=== PATIENT | female | born 1940 | race Caucasian/White ===

== ENCOUNTER 2019-09-02 09:46 | Inpatient (IN) | payer MEDICARE, OTHER, SELFPAY ==
[2019-09-02] VITALS (22 sets, daily range): BP systolic 99–152; BP diastolic 48–84; PULSE 53–96; RESP 14–301; TEMP 36.4–37.4; O2SAT 90–96; BMI 38.9
--- NOTE | 2019-09-02 06:39 | ANES.PAUD ---
Pre-Anesthetic Update Pre-Anesthetic Assessment: Date of Surgery/Procedure: 09/02/19 Proposed Procedure: Operation Date: 09/02/19 07:00 Proposed Procedures p Total Knee Arthroplasty(Right) - Reji Johnson, DO Any changes to Pre-Anesthetic Assessment?: No Last Intake: Intake Last Solid Date 09/01/19 Vitals: Temperature 97.7 F 09/02/19 06:11 Temperature Source Temporal Artery S can 09/02/19 06:11 Pulse Rate 53 L 09/02/19 06:11 Pulse Rhythm 09/02/19 06:11 Pulse Strength 3+ Normal 09/02/19 06:11 Respiratory Rate 18 09/02/19 06:11 Respiratory Effort Non-Labored 09/02/19 06:11 Respiratory Depth Normal 09/02/19 06:11 Respiratory Patter n 09/02/19 06:11 Blood Pressure 148/73 09/02/19 06:11 Blood Pressure Barbara n 98 09/02/19 06:11 Blood Pressure Pos ition Sitting 09/02/19 06:11 Pulse Oximetry 96 09/02/19 06:11 Oxygen Delivery Me thod 09/02/19 06:11 Exam: Pre-Anes Outpt Exam: alert, oriented x 3, clear to auscultation bilaterally and regular rate & rhythm Cardiac Studies: No Data to Display
--- NOTE | 2019-09-02 06:54 | ANES.PROC ---
Anesthesia Procedures Procedure/Date: 09/02/19 Nerve Block ^: Nerve Block 1: Main Anesthesia: spinal anesthesia block Time Out Performed: Yes Consent: requested by attending/covering physician, from patient and risks and benefits reviewed Nerve block location: adductor canal Anesthesia monitors applied: pulse oximetry and EKG Nerve block position: semi sitting Anesthetic Used: ropivicaine 0.5% Amount of anesthesia used (mL): 30 Ultrasound used to: recognize landmarks and visualize and ID femerol nerve Nerve Stimulator Used?: No Interscalene/Femoral BLK: 4 stimuplex 21 g needle used for position and inplane approach and visualize local anesthetic spread Injection: neg aspiration of heme Patient Tolerated Procedure: well and no complications
--- NOTE | 2019-09-02 06:57 | PM.HPUD ---
H&P update H&P Update: DATE OF SURGERY/PROCEDURE: 09/02/19 DATE H&P PERFORMED: 08/06/19 H&P UPDATE INFORMATION: No changes to prior documentation PREOP DIAGNOSIS: DJD right knee PRIMARY INDICATION FOR PROCEDURE: DJD right knee PLANNED PROCEDURE: Operation Date: 09/02/19 07:00 Proposed Procedures p Total Knee Arthroplasty(Right) - Reji Johnson DO
[2019-09-02] MEDS: midazolam 1 mg/mL INJ 5 ML 5 MG IVP (06:59)
[2019-09-02] MEDS: scopolamine 1.5 Patch 1 PATCH TRANSDERMA (07:06)
[2019-09-02] MEDS: sodium chloride 0.9% 1,000 ML 30 ML IV (07:07)
--- NOTE | 2019-09-02 07:09 | P.OP_ITS ---
Operative Report Post-Operative Note: Date of procedure: 09/02/19 Preop Diagnosis: DJD right knee Post-op Findings: DJD right knee Procedure Done: Right total knee arthroplasty CPT 09661 Computer-assisted imageless navigation CPT 30197 Implants: Nakul triathlon total knee system Posterior stabilized femoral component size 4?cemented Munday tibial baseplate size 4 cemented Posterior stabilized tibial articular surface 4 x 13 mm Specimens removed/disposition: Bone and cartilage right knee Surgeon: Reji Johnson Anesthesia: adductor canal and SAB Estimated blood loss (mL): 25 Tourniquet time (min): 100 IV fluids (mL): 600 Urine output (mL): 150 Complications: No apparent complications Findings: advanced tricompartmental DJD patella very thin only 18-20 mm in thickness Condition: stable Disposition: floor Operative Report: Brief History: 79-year-old white female with progressive disabling right knee pain due to degenerative arthritis. At this time she's failed conservative treatment. She is attended the [facility] joint class. All of her questions and concerns were answered. She is aware the risks of total knee arthroplasty surgery include aren't limited to: Infection, loosening about prosthesis, failure to relieve all pain, nerve/blood vessel/tendon injury, potential for fractures about the prosthesis that could lead to need for revision surgery. Medical complications can include blood clots, heart attack, stroke risks up to including . All questions are answered patient agreeable to proceed with surgery. Procedure: 2 g Ancef 1 g of vancomycin 1 g TXA at start of procedure and and during wound of closure Santa [place] triathlon Right cemented posterior stabilized femoral component size 4 [place] universal tibial baseplate size 4 [place] X3 posterior stabilized tibial articular surface size 4 x 13 mm 2 packages of Palacos cement with tobramycin Patient identified. Surgical site signed. Surgical permit signed. Patient received 1 g of Vancomycin and 2 g of Ancef for antimicrobial prophylaxis. Jimi thesia team performed a adductor canal block in the preoperative holding area. She was taken to the operating room. She was received a spinal anesthetic. Griffin catheter was placed. A gel bump was placed under the ipsilateral buttock. A tourniquet was placed about the upper aspect of the operative right limb. The patient received 1 g of TXA intravenously to decrease blood loss prior to incision. The operative limb was then sterilely prepped and draped usual fashion. The operative limb was exsanguinated using an Esmarch bandage and the tourniquet inflated to 300 mmHg pressure. A 20 cm midline incision was made with a skin knife. Full-thickness skin flaps were made. Skin edge bleeders were coagulated with electrocautery. Using a second knife we perform a medial parapatellar arthrotomy. Soft tissues were released off the anteromedial aspect of the tibia to the posterior medial corner of the tibia with second knife and Castro elevator. The anterior horns of the medial and lateral menisci were released and resected. Partial fat pad resection was performed with sharp dissection. The anterior posterior cruciate ligaments were divided sharply. Using electrocautery the lateral patellofemoral ligament was divided. The knee was placed in full extension. The patella was everted. Marginal osteophytes were removed. Electrocautery was taken around the periphery of the patella for denervation. Marginal osteophytes were removed with a rongeur. I elected not to resurface the patella as the patellar thickness measured a mere 18-20 mm. A partial lateral facetectomy was performed with an oscillating saw. The knee was flexed to 60? a guide pin for the OrthAlign navigation device was inserted on the distal femur on [place]'s line. We measured for the anterior posterior offset and input the number. We attached the reference sensor and unit. We maneuvered the leg to register the femur. We then set the resection plane at 0? mechanical axis and flexion at 5? flexion for the femoral component. We set the distal femoral resection guide for 10 mm as the patient had a slight flexion contracture.. Using an oscillating saw we performed the distal femoral cut. We sized the femur for a size 4 using the anterior referencing guide. Rotation was set at 3? of external rotation. The 4-in-1 cutting guide was put into place and an mckenna wing was placed through the anterior cutting guide to assess for the potential of anterior notching. The mckenna wing passed anterior to the femoral cortex. The 4-in-1 cutting block was pinned into place and the anterior and posterior as well as the chamfer cuts were then performed. The PS cutting block was pinned into place and the box cut was made with an oscillating saw. Lug holes were drilled. We then secured the tibial cutting jig on the tibia and held in place with a rubberized strap. The guide was put in place and the medial one third of the tibial tubercle and was secured with 3 pins. Tibial registration was performed by first reading the midline probe offset. The side levers were unlocked and we extended the distal probe to match offsets. We then registered the lateral followed by the medial malleolus. We set the varus/valgus angle to 0? and set the posterior slope to 0 degrees. We used the 2 mm stylus set our depth for tibial resection. We then used the oscillating saw to perform our proximal tibial cut. We now at checked our extension space and we were able to put a size 13 spacer without difficulty.The tibia was sized for a size 4. The knee joint and subcutaneous tissues were injected with 120 mL of a solution containing Exparel, 0.25% Marcaine and sterile saline. The Size 4 right trial posterior stabilized femoral component was put in place. The size 4 tibial trial component was inserted. The rotational alignment was determined by placing the knee through a range of motion with trial components in place to include a trial 11 mm trial posterior tibial articular surface. The size 4 tibial plate was held in place using headed pins. We then drilled for the stem and punched for the keel. A trial reduction was performed with an 11 mm trial articular surface the knee was able to come to slight hyperextension with flexion of 110?. The patella tracked nicely with a no touch technique. All trial components were removed from the knee. The knee was irrigated with pulsatile lavage containing antibiotic solution and the joint was dried. We then mixed 2 bags of cement with Tobramycin. Tobramycin for additional antimicrobial prophylaxis. We cemented size 4 femoral component and impacted it into place. We cemented the size 4 tibial component and removed excess cement. The cement was allowed to cure fully. A trial 11 mm posterior stabilized tibial articular bearing surface was inserted into place the knee came to slight hyperextension extension with subtle varus/valgus laxity. We then trialed a 13 mm thickness posterior stabilized tibial articular bearing surface. The knee was reduced. The knee came to near full extension flexion easily to 110?. The knee was stable to varus/valgus stress. The patella tracked nicely with a no touch technique. The overall stability in flexion and extension was preferred with the 13mm thic ktibial articular bearing surface. The 13 mm trial bearing surface was removed and the actual 13 mm posterior stabilized tibial articular bearing surface was inserted without difficulty. The knee was then irrigated with Betadine-containing saline solution and antibiotic containing saline solution. The patient received 1 g of TXA intravenously to decrease blood loss just prior to tourniquet deflation during wound closure. FloSeal was then placed in the wound for additional hemostasis within the joint was dried. Vancomycin powder was placed and capsular closure was performed with permanent as well as absorbable barbed suture. The subcutaneous layer was irrigated with Betadine-containing saline solution and antibiotic containing saline solution. Vancomycin powder was also placed in this layer. The wound was then closed in layers with kathy on skin. The knee joint and subcutaneous tissues were injected with 120 mL of a solution containing Exparel, 0.25% Marcaine and sterile saline. Skin glue was applied to the incision. Sterile dressings were then applied. A compressive Paul wrap was applied from ankle to groin. The patient was aroused from general anesthesia. Patient was taken to recovery room. Patient tolerated the procedure well. All counts were correct. Coding Level of Care Code Acute Family Law Specialist for Luis Motley
--- NOTE | 2019-09-02 08:35 | SUR.OPER ---
0814 Family updated of patient's status.
--- NOTE | 2019-09-02 09:13 | SUR.OPER ---
0913 Family updated of patient's status.
[2019-09-02] MEDS: vancomycin 1,000 MG SDV 1000 MG XX (09:19)
--- NOTE | 2019-09-02 09:30 | SUR.OPER ---
0930 Family updated of patient's status.
--- NOTE | 2019-09-02 10:11 | SUR.PHASEI ---
1011 PT HAS SENSATION/MOVEMENT IN R. FOOT, PEDAL PULSE PALPATED, CAP REFILL <3 SEC
--- NOTE | 2019-09-02 10:15 | XR_ITS ---
WS: [id number] KNEE RIGHT TECHNIQUE: 3 views of the right knee CLINICAL INFORMATION: post op COMPARISON: FINDINGS: Early postoperative right TKA. Hardware appears in good position. Surgical kathy. Soft tissue edema . Suprapatellar effusion with postoperative subcutaneous air. Normal alignment. XR/XR knee RT 3V* [id number] IMPRESSION: Satisfactory early postoperative right TKA. Hardware appears in good position.
--- NOTE | 2019-09-02 10:36 | SUR.PHASEI ---
1036 FIRST ICE APPLIED TO R. KNEE
[2019-09-02] MEDS: sodium chloride 0.9% 1,000 ML 100 ML IV ×2 (11:14→20:47)
[2019-09-02] MEDS: acetaminophen 500 mg Tablet 1000 MG PO ×2 (11:15→20:46)
[2019-09-02] MEDS: oxyCODONE 5 mg IR Tab/Cap PO ×3 (11:58→22:26)
[2019-09-02] MEDS: chlorhexidine gluconate 0.12% Btl 473 mL 30 ML MUCOUS MEM ×3 (11:59→20:46)
[2019-09-02] MEDS: TRAMadol 50 mg Tablet PO ×2 (14:11→21:38)
--- NOTE | 2019-09-02 14:24 | ANE.PACU ---
 Inpatient post-anesthesia follow up: Airway intact: Yes Vital signs: Temperature 97.6 F Pulse Rate [Bilate ral Brachial 65 ] Pulse Rate [Left] 66 Pulse Rate 69 Respiratory Rate 18 Blood Pressure [Le ft Arm] 152/79 Pulse Oximetry 95 Oxygen Delivery Me thod Room Air Oxygen Flow Rate Fraction of Inspir ed Oxygen Hydration adequate: Yes Nausea and vomiting: No Pain level: 3 Mental status: Baseline
[2019-09-02] MEDS: ondansetron 2 mg/ML SDV 2 mL 4 MG IVP (14:51)
--- NOTE | 2019-09-02 16:31 | PC.NURSE ---
Baez leaking at this time. Call placed to Dr. Johnson for early baez removal. New order to remove baez. 10 mL of H2O removed from bulb. Pt tolerated well.
[2019-09-02] MEDS: iron polysaccharide complex 150 mg Capsule PO (17:42)
[2019-09-02] MEDS: sennosides-docusate Tablet 2 TAB PO (17:42)
--- NOTE | 2019-09-02 19:46 | PC.NURSE ---
dressing to right knee dry and intact ice reapplied
[2019-09-02] MEDS: apixaban 5 mg Tablet 2.5 MG PO (21:36)
--- NOTE | 2019-09-02 21:44 | PC.NURSE ---
up to bsc voided small amount but incont large amount to chux. baljit care per self
[2019-09-03] VITALS (9 sets, daily range): BP systolic 130–154; BP diastolic 63–67; PULSE 75–85; RESP 15–22; TEMP 36.6–37.6; O2SAT 90–95
[2019-09-03] MEDS: TRAMadol 50 mg Tablet PO ×3 (01:44→20:42)
[2019-09-03] MEDS: oxyCODONE 5 mg IR Tab/Cap PO ×2 (02:57→17:17)
--- NOTE | 2019-09-03 03:01 | PC.NURSE ---
up to c incont of urine to chux and only voided small amount per dtr.
[2019-09-03] MEDS: acetaminophen 500 mg Tablet 1000 MG PO ×3 (04:37→20:35)
[2019-09-03 04:45] LABS: Basophils # 0.1 10^3/uL (0.0-0.1); Basophils % 0.4 %; Eosinophils % 0.1 %; Hematocrit 39.2 % (37.0-47.0); Hemoglobin 12.4 g/dL (11.5-15.3); Lymphocytes # 1.2 10^3/uL (0.8-4.8); Lymphocytes % 9.3 %; Mean Corpuscular HGB Conc 31.6 g/dL (30.0-36.0); Mean Corpuscular Hemoglobin 29.5 pg (28.0-34.0); Mean Corpuscular Volume 93.1 fL (81-99); Mean Platelet Volume 10.6 fL (7.4-10.4); Monocytes # 1.5 10^3/uL (0.2-0.9); Monocytes % 11.9 %; Neutrophils # 9.8 10^3/uL (1.8-7.7); Neutrophils % 77.8 %; Nucleated Red Blood Cells % 0 %; Platelet Count 263 10^3/cmm (130-400); Red Blood Count 4.21 10^6/uL (4.1-5.3); White Blood Count 12.6 10^3/uL (4.0-10.0)
[2019-09-03 06:29] LABS: Anion Gap 15.9 (5-19); Blood Urea Nitrogen 16 mg/dL (8-23); Calcium 9.1 mg/Dl (8.8-10.2); Carbon Dioxide 22 mmol/L (22-29); Chloride 97 mmol/L (98-107); Glucose 158 mg/dL (74-106); Potassium 3.9 mmol/L (3.5-5.1); Sodium 131 mmol/L (136-145)
[2019-09-03] MEDS: sodium chloride 0.9% 1,000 ML 100 ML IV ×2 (06:41→20:35)
--- NOTE | 2019-09-03 07:26 | PM.PN ---
Subjective Subjective: Interval history: 79 yo white female POD#1 s/p right TKR for DJD Medications: Reviewed: Yes Medication Review Details: Reviewed Vitals/I&O/Wt Last Vital Signs Afebrile Temp 99.6 F 09/03/19 05:09 Pulse 78 09/03/19 05:09 Resp 22 H 09/03/19 05:09 BP 140/63 09/03/19 05:09 Pulse Ox 95 09/03/19 05:09 09/02/19 09/03/19 09/03/19 22:59 06:59 14:59 Intake Total 1585 / 2465 1320 / 3785 Output Total 60 / 385 100 / 485 Balance 1525 / 2080 1220 / 3300 Weight last 48 hrs Weight 213 lb Weight 213 lb Physical Exam Narrative: EXAM NARRATIVE: 79 y/o white female s/p episode of emesis Const: COMMON NORMALS: oriented x3 HENMT: COMMON NORMALS: normocephalic and head/scalp atraumatic HEAD & SCALP: normocephalic and atraumatic Eye: COMMON NORMALS: PERRL, conjunctivae normal and negative for no scleral icterus CONJUNCTIVA: Yes conjunctivae normal PUPIL: Yes PERRL Resp: COMMON NORMALS: normal respiratory effort and clear to auscultation bilaterally AUSCULTATION: clear to auscultation bilaterally, no rales, no rhonchi and no wheezes Cardio: COMMON NORMALS: regular rate and regular rhythm JUGULAR VENOUS DISTENTION: no JVD RATE: regular rate RHYTHM: regular rhythm GI: COMMON NORMALS: normal to inspection, nondistended, normoactive bowel sounds, soft to palpation and non-tender PALPATION: Yes soft Extremity: RIGHT LOWER EXTREMITY: Yes knee joint (Dressing clean dry and intact with minimal strikethrough) Right knee: Yes inspection, Yes other and Yes special tests OTHER: No calf tenderness Neuro: COMMON NORMALS: oriented x3 Psych: COMMON NORMALS: mental status grossly normal, cooperative and speech normal SPEECH: Yes normal speech Urinary Catheter Management^: Griffin: Cath Placed During This Visit: no A&P Assessment and plan (1) Status post total right knee replacement: Postoperative day 1 status post right total knee arthroplasty for degenerative arthritis Postoperative nausea and vomiting-antiemetics ordered Continue perioperative antibiotics started extended oral prophylaxis tomorrow VTE at highest risk postop-Eliquis 2.5 mg by mouth twice a day, sequential compression devices and immobilization Discharge planning to home with home health Status: Acute Code(s): Z96.651 - Presence of right artificial knee joint Attestations Medical Necessity Statement*: Patient status post right total knee arthroplasty with complaints of postoperative nausea and vomiting. Patient requiring potent narcotic medication for pain control. Patient be kept in house to ensure ability to eat and drink as well as to control pain. Physical therapy still needs to work with patient to ensure that she is safe to be transferred home with home health. Time Spent in Patient Care: 16 - 35 minutes (>than 50% of time spent in counselling and/or direct pt care on unit). Coding Level of Care Code Established Pt Acute Registered Dental Assistant for Luis Motley Patient Type Established Diagnoses Status post total right knee replacement Z96.651 Time Spent (min) 23
[2019-09-03] MEDS: ondansetron 2 mg/ML SDV 2 mL 4 MG IVP (08:11)
[2019-09-03] MEDS: losartan 50 mg Tablet PO (09:03)
[2019-09-03] MEDS: apixaban 5 mg Tablet 2.5 MG PO ×2 (09:03→17:06)
[2019-09-03] MEDS: citalopram 20 mg Tablet PO (09:03)
[2019-09-03] MEDS: multivitamin therapeutic Tablet 1 TAB PO (09:03)
[2019-09-03] MEDS: iron polysaccharide complex 150 mg Capsule PO ×2 (09:03→17:06)
[2019-09-03] MEDS: amlodipine 5 mg Tablet PO (09:04)
[2019-09-03] MEDS: atorvastatin 40 mg Tablet 20 MG PO (09:04)
[2019-09-03] MEDS: sennosides-docusate Tablet 2 TAB PO ×2 (09:05→17:06)
[2019-09-03] MEDS: chlorhexidine gluconate 0.12% Btl 473 mL 30 ML MUCOUS MEM ×4 (10:41→20:35)
[2019-09-03] MEDS: vancomycin 1,000 MG in sodium chloride 0.9% 250 ML 250 MG IV (10:55)
[2019-09-03] MEDS: fexofenadine 60 mg Tablet 180 MG PO (11:08)
--- NOTE | 2019-09-03 13:41 | ANE.PACU ---
 Inpatient post-anesthesia follow up: Airway intact: Yes Vital signs: Temperature 98.8 F Pulse Rate [Bilate ral Brachial 65 ] Pulse Rate [Left] 81 Pulse Rate 69 Respiratory Rate 18 Blood Pressure [Le ft Arm] 147/64 Pulse Oximetry 95 Oxygen Delivery Me thod Room Air Oxygen Flow Rate Fraction of Inspir ed Oxygen Nausea and vomiting: Yes Pain level: tolerable Mental status: Baseline
--- NOTE | 2019-09-03 17:03 | PC.CHAP ---
Pastoral Care Encounter/Spiritual Assessment Type of Contact [] Declined gas system operator visit [] Patient/Family/Request visit [] Outpatient visit [] Follow-up visit [] Physician referral [] Code/Alert [x] Routine visit [] Staff referral [] Actively dying [] Patient sleeping [x] Family support [] [] Out of room [] Palliative care [] [] Receiving care in room [] Pre-surgical visit [] Trauma [] Long length of stay [] ICU visit [] Other: Relational/Emotional Strength [x] Patient feels connected with others/family/visitors/staff [] Distress [] Loneliness/isolation [] Abandonment Spirituality of Patient x[] Person of Kaila [] Attends Druze of their Kaila [x] Believes in Prayer [] Reads Bible or Muslim materials [] There are Spiritual issues to be addressed Offset Pressman Interventions [x] Prayer [x] Active listening [x] Non-anxious presence [] Spiritual/emotional support [] Crisis/trauma care [] Spiritual counseling [] Bereavement support [] Provided bereavement packet [] Provided Bible/devotional materials [] Provided toy/stuffed animal, coloring book to patient or family member [] Completed spiritual assessment [] Provided Communion [] Anointing/[place] [] Salvation [] Other: Impact on Illness or Injury [] Angry [] Fearful [] Anxious [] Often cries [] Exhaustion [] Unable to work [] Unable to attend scientologist [] Unable to walk/stand [] Unable to read [] Unable to drive [] Unable to eat/drink [] Unable to sleep [] Unable to be with family [] Other: Summary a very sweet lady, in good spirits. Offset Pressman prayed. 3 family Time spent with patient
[2019-09-04] VITALS (7 sets, daily range): BP systolic 130–152; BP diastolic 64–80; PULSE 72–76; RESP 16–20; TEMP 36.8–37.1; O2SAT 91–97
[2019-09-04] MEDS: acetaminophen 500 mg Tablet 1000 MG PO (03:44)
[2019-09-04] MEDS: oxyCODONE 5 mg IR Tab/Cap PO ×2 (03:48→08:12)
[2019-09-04] MEDS: sodium chloride 0.9% 1,000 ML 100 ML IV (03:50)
[2019-09-04 05:55] LABS: Basophils % 0.4 %; Eosinophils % 0.4 %; Hematocrit 33.2 % (37.0-47.0); Hemoglobin 10.9 g/dL (11.5-15.3); Lymphocytes # 1.5 10^3/uL (0.8-4.8); Lymphocytes % 13.4 %; Mean Corpuscular HGB Conc 32.8 g/dL (30.0-36.0); Mean Corpuscular Hemoglobin 29.9 pg (28.0-34.0); Mean Platelet Volume 10.9 fL (7.4-10.4); Monocytes # 1.4 10^3/uL (0.2-0.9); Monocytes % 12.6 %; Neutrophils # 8.2 10^3/uL (1.8-7.7); Neutrophils % 72.7 %; Nucleated Red Blood Cells % 0 %; Platelet Count 222 10^3/cmm (130-400); Red Blood Count 3.65 10^6/uL (4.1-5.3); White Blood Count 11.2 10^3/uL (4.0-10.0)
[2019-09-04] MEDS: chlorhexidine gluconate 0.12% Btl 473 mL 30 ML MUCOUS MEM (08:10)
[2019-09-04] MEDS: losartan 50 mg Tablet PO (08:11)
[2019-09-04] MEDS: fexofenadine 60 mg Tablet 180 MG PO (08:11)
[2019-09-04] MEDS: atorvastatin 40 mg Tablet 20 MG PO (08:11)
[2019-09-04] MEDS: iron polysaccharide complex 150 mg Capsule PO (08:11)
[2019-09-04] MEDS: sennosides-docusate Tablet 2 TAB PO (08:11)
[2019-09-04] MEDS: multivitamin therapeutic Tablet 1 TAB PO (08:11)
[2019-09-04] MEDS: apixaban 5 mg Tablet 2.5 MG PO (08:12)
[2019-09-04] MEDS: citalopram 20 mg Tablet PO (08:13)
[2019-09-04] MEDS: amlodipine 5 mg Tablet PO (08:13)
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
== END 2019-09-04 10:48 | disposition home health service (06) | DRG 470 ==
LOC: MEDSURG 09:47
PROVIDERS: Admitting Provider Orthopaedic Surgery; Family Provider Family Medicine; PCP Family Medicine; Visit Provider Orthopaedic Surgery
PROC: 0SRC0J9 Replacement of Right Knee Joint with Synthetic Substitute, Cemented, Open Approach (ICD-10-PCS; CPT 27447; principal; 2019-09-02 07:00)
DX: M17.11 Unilateral primary osteoarthritis, right knee (principal); Z79.82 Long term (current) use of aspirin
CPT/HCPCS: 36415; 51702; 73562; 80048; 85025; 86850; 86900; 88304; 96374; 96375; 97110; 97116; 97161; 97165; 97535; C1776; C9290; G0378; J0690; J1580; J2001; J2250; J2405; J2704; J2795; J3010; J3370; J3490; J7030; J7050

== ENCOUNTER 2019-09-05 22:31 | Inpatient (IN) | payer MEDICARE, OTHER, SELFPAY ==
[2019-09-05 22:38] VITALS: BP 142/52; PULSE 78; RESP 26; O2SAT 75; BMI 41.5
--- NOTE | 2019-09-05 22:44 | ED_ITS ---
Entered by Florencia Lezama, acting as scribe for Adam Zazueta DO HPI - SOB/Dyspnea General: Chief Complaint: Shortness of Breath/Dyspnea Stated Complaint: Cant breathe Time Seen by Provider: 09/05/19 22:46 Source: patient Mode of arrival: wheelchair Limitations: no limitations History of Present Illness: HPI Narrative: 79 yo f came to the er pov with rene caro for sob. Onset was today. Pts family states that she is not usually on o2 at home. Family states that she has a knee replacement a few days ago ago. MD elicited complaint: shortness of breath Onset (ago): day(s) (today) Context: other (recent knee replacement surgery) Timing: constant Severity: moderate Exacerbating factors: nothing Relieving factors: oxygen and rest Associated symptoms: Reports fever(s); Deny abdominal pain, chest pain, dizziness, nausea, orthopnea, palpitations or vomiting Related Data: Home oxygen amount: none Review of Systems Const: Reports: fever Eyes: Denies: change in vision or blurry vision ENMT: Denies: painful swallowing, swelling of lips/tongue, bleeding gums, dental pain, Change in hearing, nose bleeds, post nasal drip or facial/sinus pain Card: Denies: chest pain, palpitations or shortness of breath when lying down Resp: Reports: shortness of breath; Denies: productive cough, non-productive cough or wheezing GI: Denies: abdominal pain, nausea or vomiting : Denies: painful urination, urinary frequency, urinary urgency or blood in urine Musc: Denies: neck pain, back pain, redness or joint warmth Skin/Breast: Denies: rash, itching or redness Neuro: Denies: dizziness Psych: Denies: anxiety, visual hallucinations or auditory hallucinations PFSH ED PFSH: Statuses (acute, chronic, etc) shown below reflect problem list status as previously entered and may not be historically accurate Medical History Coronary artery disease (Chronic) Degenerative arthritis of right knee (Acute) Hypertension (Chronic) Surgical History History of heart artery stent (Acute) History of knee replacement (Acute) Status post total right knee replacement (Chronic) Social History Smoking and tobacco status: never smoked Physical Exam Const: COMMON NORMALS: alert GENERAL APPEARANCE: well developed ORIENTATION/CONSCIOUSNESS: Yes awake, Yes oriented to person, Yes oriented to place and Yes oriented to time HENMT: COMMON NORMALS: normocephalic, external ears normal, external nose normal and moist oral mucous membranes HEAD & SCALP: normocephalic; no scalp tenderness FACE & SINUS: normal facial exam NOSE: external nose normal and no nasal discharge EXTERNAL EAR: Yes external ears normal MOUTH: tongue normal Eye: COMMON NORMALS: PERRL, EOMs intact bilaterally and conjunctivae normal EYELID: eyelids normal CONJUNCTIVA: Yes conjunctivae normal PUPIL: Yes PERRL Neck/C-Spine: COMMON NORMALS: full ROM GENERAL: No tracheal deviation Chest: COMMONS NORMALS: inspection of chest normal CHEST: Yes symmetrical chest wall rise and No tenderness Resp: COMMON NORMALS: clear to auscultation bilaterally EFFORT & INSPECTION: No tachypneic, No respiratory distress, No retractions, No uses accessory muscles and No tracheal deviation AUSCULTATION: clear to auscultation bilaterally, no rhonchi, no wheezes and diminished lung sounds Cardio: COMMON NORMALS: regular rate and regular rhythm RATE: regular rate RHYTHM: regular rhythm HEART SOUNDS: no murmurs PERIPHERAL PULSES: radial pulses present GI: INSPECTION: No abdominal distension AUSCULTATION: No hyperactive bowel sounds and No hypoactive bowel sounds PALPATION: No tender, No guarding and No rigid PERCUSSION: no dullness to percussion and no tympanic to percussion : COMMON NORMALS: Yes no CVA tenderness BLADDER/KIDNEY EXAM: Yes no CVA tenderness Back/Pelvis: COMMON NORMALS: no CVA tenderness Neuro: SENSORIUM/ORIENTATION: Yes alert, Yes oriented to person, Yes oriented to place and Yes oriented to time Psych: COMMON NORMALS: mental status grossly normal and speech normal SPEECH: Yes normal speech Skin: COMMON NORMALS: no rashes or lesions noted GENERAL SKIN EXAM: no rashes or lesions noted Course ED course: 79-year-old lady a few days out from a knee replacement surgery. She presents significantly short of breath. Room air saturations were in the 70s on arrival. Currently she is on 5 L, satting 93%. She is no longer in respiratory distress. She is smiling, and asking questions appropriately. Chest x-ray was nondiagnostic. Troponin was mildly elevated, but did not change at 2 hours. CTA shows no pulmonary embolus. It does show pulmonary edema, which correlates well to a significantly elevated BNP. She will be treated for pulmonary edema. Consultations: Consultation #1: anthony Time: 03:07 Vital Signs: Vital signs: Vital Signs Temperature 97.3 F L 09/06/19 05:05 Pulse Rate 83 09/06/19 05:30 Respiratory Rate 18 09/06/19 05:05 Blood Pressure 140/74 09/06/19 05:05 Pulse Oximetry 94 09/06/19 05:30 MDM - SOB/Dyspnea Lab Data: Labs: Lab Results 09/05/19 09/05/19 09/05/19 Range/Units 22:50 22:50 22:50 WBC 11.7 H (4.0-10.0) 10^3/ uL RBC 3.63 L (4.1-5.3) 10^6/u L Hgb 11.2 L (11.5-15.3) g/dL Hct 34.2 L (37.0-47.0) % MCV 94.2 (81-99) fL MCH 30.9 (28.0-34.0) pg MCHC 32.7 (30.0-36.0) g/dL RDW 13.2 (12.1-15.1) % Plt Count 263 (130-400) 10^3/c mm MPV 11.6 H (7.4-10.4) fL Neut % (Auto) 76.6 % Lymph % (Auto) 9.8 % [place] % (Auto) 11.5 % Eos % (Auto) 1.3 % Baso % (Auto) 0.4 % Neut # (Auto) 9.0 H (1.8-7.7) 10^3/u L Lymph # (Auto) 1.2 (0.8-4.8) 10^3/u L [place] # (Auto) 1.4 H (0.2-0.9) 10^3/u L Eos # (Auto) 0.2 (0.0-0.8) 10^3/u L Baso # (Auto) 0.1 (0.0-0.1) 10^3/u L Nucleated RBC % (a uto) 0 % Nucleated RBCs # 0.0 /100WBC PT 14.40 H (10.5-13.3) SECO NDS INR 1.08 (0.8-1.2) Specimen Type Sample Site ABG pH (7.35-7.45) ABG pCO2 (35-45) mmHg ABG pO2 (80.0-100.0) mmH g ABG HCO3 (22-26) mmol/L ABG Base Excess (-2.0-2.0) mmol/ L Richie Test Hematocrit (37-47) % Hgb O2 Saturation (95-100) % Carboxyhemoglobin (0.4-20.1) %THgb Methemoglobin (0.4-1.5) % Total Hemoglobin (12-16) g/dL O2 Liters/Min % Radiosonde Operator ID Sodium 145 (136-145) mmol/L Potassium 3.6 (3.5-5.1) mmol/L Chloride 99 (98-107) mmol/L Carbon Dioxide 26 (22-29) mmol/L Anion Gap 23.6 H (5-19) BUN 22 (8-23) mg/dL Creatinine 0.9 (0.5-0.9) mg/dL Glucose 126 H (74-106) mg/dL Lactate (0.5-2.2) mmol/L Calcium 9.8 (8.8-10.2) mg/Dl Total Bilirubin 0.6 (0.15-1.2) mg/dL AST 33 H (0-32) U/L ALT 14 (0-33) U/L Alkaline Phosphata se 73 (35-105) IU/L Troponin T Baselin e (0-10) ng/mL Troponin T 120 Min [place] (0-10) ng/mL Delta Troponin T (0-10) ABS# NT-Pro-B Natriuret Pep 6980 H (0-450) pg/mL Total Protein 6.5 L (6.6-8.7) g/dL Albumin 4.0 (3.5-5.2) g/dL Globulin 2.5 (1.3-4.6) g/dL 09/05/19 09/05/19 09/06/19 Range/Units 22:50 23:50 00:21 WBC (4.0-10.0) 10^3/ uL RBC (4.1-5.3) 10^6/u L Hgb (11.5-15.3) g/dL Hct (37.0-47.0) % MCV (81-99) fL MCH (28.0-34.0) pg MCHC (30.0-36.0) g/dL RDW (12.1-15.1) % Plt Count (130-400) 10^3/c mm MPV (7.4-10.4) fL Neut % (Auto) % Lymph % (Auto) % [place] % (Auto) % Eos % (Auto) % Baso % (Auto) % Neut # (Auto) (1.8-7.7) 10^3/u L Lymph # (Auto) (0.8-4.8) 10^3/u L [place] # (Auto) (0.2-0.9) 10^3/u L Eos # (Auto) (0.0-0.8) 10^3/u L Baso # (Auto) (0.0-0.1) 10^3/u L Nucleated RBC % (a uto) % Nucleated RBCs # /100WBC PT (10.5-13.3) SECO NDS INR (0.8-1.2) Specimen Type Arterial Sample Site Radial, right ABG pH 7.44 (7.35-7.45) ABG pCO2 43.1 (35-45) mmHg ABG pO2 51.5 L (80.0-100.0) mmH g ABG HCO3 29.2 H (22-26) mmol/L ABG Base Excess 4.5 H (-2.0-2.0) mmol/ L Richie Test Pos Hematocrit 32.8 L (37-47) % Hgb O2 Saturation 86.1 L (95-100) % Carboxyhemoglobin 1.4 (0.4-20.1) %THgb Methemoglobin 0.3 L (0.4-1.5) % Total Hemoglobin 10.7 L (12-16) g/dL O2 Liters/Min 3.5 % Radiosonde Operator ID monro Sodium (136-145) mmol/L Potassium (3.5-5.1) mmol/L Chloride (98-107) mmol/L Carbon Dioxide (22-29) mmol/L Anion Gap (5-19) BUN (8-23) mg/dL Creatinine (0.5-0.9) mg/dL Glucose (74-106) mg/dL Lactate 1.4 (0.5-2.2) mmol/L Calcium (8.8-10.2) mg/Dl Total Bilirubin (0.15-1.2) mg/dL AST (0-32) U/L ALT (0-33) U/L Alkaline Phosphata se (35-105) IU/L Troponin T Baselin e 77 H (0-10) ng/mL Troponin T 120 Min [place] (0-10) ng/mL Delta Troponin T (0-10) ABS# NT-Pro-B Natriuret Pep (0-450) pg/mL Total Protein (6.6-8.7) g/dL Albumin (3.5-5.2) g/dL Globulin (1.3-4.6) g/dL 09/06/19 Range/Units 00:58 WBC (4.0-10.0) 10^3/ uL RBC (4.1-5.3) 10^6/u L Hgb (11.5-15.3) g/dL Hct (37.0-47.0) % MCV (81-99) fL MCH (28.0-34.0) pg MCHC (30.0-36.0) g/dL RDW (12.1-15.1) % Plt Count (130-400) 10^3/c mm MPV (7.4-10.4) fL Neut % (Auto) % Lymph % (Auto) % [place] % (Auto) % Eos % (Auto) % Baso % (Auto) % Neut # (Auto) (1.8-7.7) 10^3/u L Lymph # (Auto) (0.8-4.8) 10^3/u L [place] # (Auto) (0.2-0.9) 10^3/u L Eos # (Auto) (0.0-0.8) 10^3/u L Baso # (Auto) (0.0-0.1) 10^3/u L Nucleated RBC % (a uto) % Nucleated RBCs # /100WBC PT (10.5-13.3) SECO NDS INR (0.8-1.2) Specimen Type Sample Site ABG pH (7.35-7.45) ABG pCO2 (35-45) mmHg ABG pO2 (80.0-100.0) mmH g ABG HCO3 (22-26) mmol/L ABG Base Excess (-2.0-2.0) mmol/ L Richie Test Hematocrit (37-47) % Hgb O2 Saturation (95-100) % Carboxyhemoglobin (0.4-20.1) %THgb Methemoglobin (0.4-1.5) % Total Hemoglobin (12-16) g/dL O2 Liters/Min % Radiosonde Operator ID Sodium (136-145) mmol/L Potassium (3.5-5.1) mmol/L Chloride (98-107) mmol/L Carbon Dioxide (22-29) mmol/L Anion Gap (5-19) BUN (8-23) mg/dL Creatinine (0.5-0.9) mg/dL Glucose (74-106) mg/dL Lactate (0.5-2.2) mmol/L Calcium (8.8-10.2) mg/Dl Total Bilirubin (0.15-1.2) mg/dL AST (0-32) U/L ALT (0-33) U/L Alkaline Phosphata se (35-105) IU/L Troponin T Baselin e (0-10) ng/mL Troponin T 120 Min [place] 66.11 H (0-10) ng/mL Delta Troponin T -10.89 L (0-10) ABS# NT-Pro-B Natriuret Pep (0-450) pg/mL Total Protein (6.6-8.7) g/dL Albumin (3.5-5.2) g/dL Globulin (1.3-4.6) g/dL Discharge Plan Discharge Admit Provider: Kareem Doss Discharge Date/Time: 09/06/19 04:15 Coding Level of Care Code ED Comber Setter for Chg Fwd The documentation recorded by the Teja silva Stephanie Lyn, accurately reflects the service I personally performed and the decisions made by Marbin holcomb Jeremy John, DO Sep 05, 2019 22:31
[2019-09-05 23:01] VITALS: BP 119/46; PULSE 84; RESP 20; TEMP 37.3
--- NOTE | 2019-09-05 23:02 | PC.NURSE ---
Introduced self to patient and initiated vital signs. Pt is A&O x 4 and agreeeable. Pt states that the reason for the ER visit today is due to shortness of breath which presented earlier in day. Reassured patient of needs and will continue to monitor. Awaiting provider at bedside.
[2019-09-05 23:21] VITALS: BP 123/47; PULSE 66; RESP 18; O2SAT 91
--- NOTE | 2019-09-05 23:22 | ECG_ITS ---
Measurements Intervals [place] Rate: 67 P: 54 NC: 165 QRS: 29 QRSD: 89 T: 29 QT: 400 QTc: [address] & T-WAVE ABNORMALITY Compared to ECG 08/20/2019 10:56:50 T-wave abnormality now present Bradycardia, nonsinus no longer present Atrial abnormality no longer present Myocardial infarct finding no longer present Electronically Signed On 09-06-2019 19:25:08 MAIL MANAGER by Sherry Mina M.D. [email or web address]
[2019-09-05 23:53] LABS: Basophils # 0.1 10^3/uL (0.0-0.1); Basophils % 0.4 %; Eosinophils # 0.2 10^3/uL (0.0-0.8); Eosinophils % 1.3 %; Hematocrit 34.2 % (37.0-47.0); Hemoglobin 11.2 g/dL (11.5-15.3); Lymphocytes # 1.2 10^3/uL (0.8-4.8); Lymphocytes % 9.8 %; Mean Corpuscular HGB Conc 32.7 g/dL (30.0-36.0); Mean Corpuscular Hemoglobin 30.9 pg (28.0-34.0); Mean Corpuscular Volume 94.2 fL (81-99); Mean Platelet Volume 11.6 fL (7.4-10.4); Monocytes # 1.4 10^3/uL (0.2-0.9); Monocytes % 11.5 %; Neutrophils % 76.6 %; Nucleated Red Blood Cells % 0 %; Platelet Count 263 10^3/cmm (130-400); Red Blood Count 3.63 10^6/uL (4.1-5.3); Red Cell Distribution Width 13.2 % (12.1-15.1); White Blood Count 11.7 10^3/uL (4.0-10.0)
[2019-09-05 23:57] LABS: INR 1.08 (0.8-1.2)
[2019-09-06] VITALS (17 sets, daily range): BP systolic 121–168; BP diastolic 55–98; PULSE 64–100; RESP 17–26; TEMP 36.3–36.9; O2SAT 90–98
[2019-09-06 00:07] LABS: Lactate (Lactic Acid level) 1.4 mmol/L (0.5-2.2)
[2019-09-06 00:13] LABS: Troponin(5th) Baseline 77 ng/mL (0-10)
[2019-09-06 00:20] LABS: Alanine Aminotransferase 14 U/L (0-33); Alkaline Phosphatase 73 IU/L (35-105); Anion Gap 23.6 (5-19); Aspartate Amino Transferase 33 U/L (0-32); Blood Urea Nitrogen 22 mg/dL (8-23); Calcium 9.8 mg/Dl (8.8-10.2); Carbon Dioxide 26 mmol/L (22-29); Chloride 99 mmol/L (98-107); Globulin 2.5 g/dL (1.3-4.6); Glucose 126 mg/dL (74-106); NT Pro B Type Natriuretic Pept 6980 pg/mL (0-450); Potassium 3.6 mmol/L (3.5-5.1); Sodium 145 mmol/L (136-145); Total Bilirubin 0.6 mg/dL (0.15-1.2); Total Protein 6.5 g/dL (6.6-8.7)
[2019-09-06 00:35] LABS: ABG PCO2 43.1 mmHg (35-45); ABG PH Result 7.44 (7.35-7.45); Arterial Blood Gas Hematocrit 32.8 % (37-47); Base Excess ABG 4.5 mmol/L (-2.0-2.0); Blood Gas Allen Test Pos; Blood Gas LPM 3.5 %; Blood Gas Sample Site Radial, right; Blood Gas Sample Type Arterial; Carboxyhemoglobin 1.4 %THgb (0.4-20.1); HCO3 ABG 29.2 mmol/L (22-26); HGB O2 Sat 86.1 % (95-100); Methemoglobin 0.3 % (0.4-1.5); PO2 ABG 51.5 mmHg (80.0-100.0); Total Hemoglobin 10.7 g/dL (12-16)
[2019-09-06] MEDS: ipratropium-albuterol 3 mL Neb INHALATION (00:45)
--- NOTE | 2019-09-06 00:53 | XR_ITS ---
WS: [id number] CHEST XRAY TECHNIQUE: Portable chest. CLINICAL INFORMATION: sob COMPARISON: FINDINGS: Heart: Cardiomegaly. Mild pulmonary vascular congestion. Lungs: Elevation right hemidiaphragm. Slightly atelectasis left lung base. No focal pneumonia. Bones: Normal visualized bony structures. XR/XR chest 1V portable [id number] IMPRESSION: Cardiomegaly with mild pulmonary vascular congestion. No focal pneumonia.
[2019-09-06 01:20] LABS: Troponin 5 2HR 66.11 ng/mL (0-10)
[2019-09-06 01:21] LABS: Troponin 5 2HR Delta -10.89 ABS# (0-10)
--- NOTE | 2019-09-06 01:22 | ECG_ITS ---
Measurements Intervals [place] Rate: 71 P: 54 RI: 171 QRS: 24 QRSD: 86 T: 25 QT: 393 QTc: [address] & T-WAVE ABNORMALITY Compared to ECG 08/20/2019 10:56:50 T-wave abnormality now present Bradycardia, nonsinus no longer present Atrial abnormality no longer present Myocardial infarct finding no longer present Electronically Signed On 09-06-2019 19:30:48 LIFESTYLE DIRECTOR by Sherry Mina M.D. [email or web address]
--- NOTE | 2019-09-06 01:24 | CTR_ITS ---
PROCEDURE INFORMATION: Exam: CT Angiography Chest With Contrast Exam date and time: 09/06/2019 1:31 AM Age: 79 years old Clinical indication: Dyspnea; Patient HX: PT had right knee surgery 4 days ago; Additional info: SOB TECHNIQUE: Imaging protocol: Computed tomographic angiography of the chest with intravenous contrast. 3D rendering: MIP and/or 3D reconstructed images were created by the technologist. Total DLP: 1167.13 mGy-cm Radiation optimization: All CT scans at this facility use at least one of these dose optimization techniques: automated exposure control; mA and/or kV adjustment per patient size (includes targeted exams where dose is matched to clinical indication); or iterative reconstruction. Contrast material: OMNI 350; Contrast volume: 95 ml; Contrast route: IV; COMPARISON: CR XR chest 1V portable [id number] 09/06/2019 1:13 AM FINDINGS: Pulmonary arteries: Normal. No pulmonary emboli. Aorta: Calcifications are present within the thoracic and abdominal aorta. Lungs: There is mild bronchial wall thickening seen in the lower hemithoraces. Some strandy opacities are seen in the right lung base likely representing atelectasis. There are some increased linear opacities present in the hemithoraces bilaterally and some ground-glass opacities seen in the right upper lobe posteriorly, findings could represent mild pulmonary edema. There is a calcified granuloma seen in the right upper lobe measuring 3.2 mm. Pleural space: There are bilateral pleural effusions, right slightly larger than left. Heart: Calcifications are seen within the coronary arteries. Liver: There are 2 contiguous hypoattenuation cystic lesions seen within the left hepatic lobe and negative measuring approximately 4.1 cm in transverse dimension likely representing benign cysts. Kidneys and ureters: There is a 4.4 cm partially imaged cystic mass seen on the lateral aspect of the right kidney likely representing a simple cyst. Lymph nodes: Unremarkable. No enlarged lymph nodes. Bones/joints: Unremarkable. No acute fracture. Soft tissues: Unremarkable. CT/CT angio chest PE protcl [id number] IMPRESSION: 1. There are no pulmonary emboli. 2. Bilateral pleural effusions, right slightly larger than left. 3. Strandy opacities in the right lung base likely represents atelectasis. 4. Mild bronchial wall thickening, ground-glass opacities in the right upper lobe and increased linear opacities present in the hemithoraces bilaterally could represent pulmonary edema. 5. Two contiguous simple appearing left hepatic cysts measuring 4.1 cm. These appear stable compared with 03/16/2015. No further workup needed. 6. 4.4 cm partially imaged right renal cyst. This appears stable compared with 03/16/2015. Radiation Dose CTDIVOL = (mGy): DLP = 1167.13 (mGy-cm)
[2019-09-06] MEDS: iohexol 350 mg/mL 100 mL Btl IV (01:30)
[2019-09-06] MEDS: levofloxacin-dextrose 5 % 750 MG/150 ML PREMIX 150 MG IV (02:09)
[2019-09-06] MEDS: FUROsemide 10 mg/mL SDV 10mL 60 MG IVP (03:04)
--- NOTE | 2019-09-06 03:14 | P.HP_ITS ---
Providers/Chief Complaint Primary Care Provider: Van Rosas MD Chief Complaint: HYPOXIC RESP FAILURE, PULMONARY EDEMA History of Present Illness Dai Cavazos is a 79 year old female with a total right knee arthroplasty on 09/02/2019, hypertension presents with altered mental status. Patient altered unable to give history so history obtained from chart and family members. Patient has been altered from her baseline since surgery. Initially family members thought it could be related to opioids given during discharge which they stopped at home. Patient continued to remain altered and noted to be hypoxeic on pulse ox at home. In ED patient was noted to be hypoxemic saturating in 70s?80s. CT chest was negative for PE but showed pulmonary edema. Family denies history of heart failure. Review of Systems Narrative: Unable to obtain refer to HPI Medications/Allergies Allergies Allergy/AdvReac Type Severity Reaction Status Date / Time hydrocodone Allergy Severe ADR-Itching Verified 09/02/19 06:00 codeine Allergy ADR-Itching Verified 09/02/19 06:00 NSAIDS (Non-Steroidal Allergy ADR-Itching Verified 09/02/19 06:00 Anti-Inflamma PFSH Acute PFSH: Statuses (acute, chronic, etc) shown below reflect problem list status as previously entered and may not be historically accurate Medical History Coronary artery disease (Chronic) Degenerative arthritis of right knee (Acute) Hypertension (Chronic) Surgical History History of heart artery stent (Acute) History of knee replacement (Acute) Status post total right knee replacement (Chronic) Social History Smoking and tobacco status: never smoked Vitals/I&O/Wt Last Vital Signs Temp 99.1 F 09/05/19 23:01 Pulse 65 09/06/19 00:48 Resp 20 H 09/06/19 00:45 BP 119/46 09/05/19 23:01 Pulse Ox 92 09/06/19 00:45 Weight last 48 hrs Weight 102.965 kg Physical Exam Const: COMMON NORMALS: no apparent distress and well nourished HENMT: COMMON NORMALS: normocephalic HEAD & SCALP: normocephalic Eye: COMMON NORMALS: no scleral icterus Neck/C-Spine: COMMON NORMALS: supple Resp: AUSCULTATION: crackles and diminished lung sounds Cardio: COMMON NORMALS: regular rate, regular rhythm, S1 normal heart sound and S2 normal heart sound RATE: regular rate RHYTHM: regular rhythm HEART SOUNDS: S1 normal and S2 normal GI: COMMON NORMALS: normal to inspection, nondistended, normoactive bowel sounds and non-tender Extremity: OTHER: R LE 2+ edema w/ surgical site clean and dry on R knee Data : 09/05/19 22:50 09/05/19 22:50 A&P Assessment and plan (1) Status post total right knee replacement: Status: Chronic Code(s): Z96.651 - Presence of right artificial knee joint (2) Coronary artery disease: Status: Chronic Code(s): I25.10 - Atherosclerotic heart disease of [place] coronary artery without angina pectoris (3) Hypertension: Status: Chronic Code(s): I10 - Essential (primary) hypertension (4) Altered mental status: #Altered mental status 2/2 acute hypoxemic respiratory failure 2/[address] scan negative for PE ?IV Lasix ?Nasal cannula ?Spirometer ?Echo to rule out heart failure #Hypertension ?Continue with home medications #Recent total right knee arthroplasty ?Continue with anticoagulation ?We will hold opioids for now due to altered mental status?unclear if contributing to symptoms Continue with rest of chronic medications #DVT prophylaxis?on Eliquis Status: Acute Code(s): R41.82 - Altered mental status, unspecified Attestations Medical Necessity Statement*: Patient requires inpatient greater than 2 midnights admission for altered mental status secondary to hypoxemic respiratory failure Coding Level of Care Code Acute Sheet Metal Journeyman for Luis Fwelizabeth Diagnoses Status post total right knee replacement Z96.651 Coronary artery disease I25.10 Hypertension I10 Altered mental status R41.82
--- NOTE | 2019-09-06 05:22 | ECG_ITS ---
Measurements Intervals [place] Rate: 74 P: 73 TX: 161 QRS: 33 QRSD: 94 T: 26 QT: 391 QTc: [address] & T-WAVE ABNORMALITY Compared to ECG 08/20/2019 10:56:50 T-wave abnormality now present Bradycardia, nonsinus no longer present Atrial abnormality no longer present Myocardial infarct finding no longer present Electronically Signed On 09-06-2019 19:31:09 CUSTOMER EXPERIENCE INTERN by Sherry Mina M.D. [email or web address]
--- NOTE | 2019-09-06 06:24 | USCV_ITS ---
Dai Cavazos Age: 79 Gender: F : 1940 Exam Date: 09/06/2019 08:33 Ordering Phys: Kareem Doss DO Technologist: Amador Osborne [place] [facility] [place]: MURMUR BP: 138 / 67 HR: 78 Rhythm: Sinus Technical Quality: Fair MEASUREMENTS (Male / Female) Normal Values 2D ECHO LV Diastolic Diameter PLAX 3.5 cm 4.2 - 5.9 / 3.9 - 5.3 cm LV Systolic Diameter PLAX 2.2 cm IVS Diastolic Thickness 1.1 cm 0.6 - 1.0 / 0.6 - 0.9 cm IVS Systolic Thickness 1.5 cm LVPW Diastolic Thickness 1.2 cm 0.6 - 1.0 / 0.6 - 0.9 cm LVPW Systolic Thickness 1.3 cm LVOT Diameter 2.0 cm LV Ejection Fraction 2D Teich 65.7 % LV Ejection Fraction MOD 2C 71.0 % LV Ejection Fraction 2C AL 71.0 % LA Diameter 3.9 cm LA Width 3.0 cm LA Height 4.7 cm RA Width 2.1 cm RA Height 4.1 cm M-MODE LV Diastolic Diameter MM 5.5 cm 4.2 - 5.9 / 3.9 - 5.3 cm LV Systolic Diameter MM 3.2 cm LV Ejection Fraction MM Teich 71.8 % IVS Diastolic Thickness MM 0.9 cm 0.6 - 1.0 / 0.6 - 0.9 cm IVS Systolic Thickness MM 1.3 cm LVPW Diastolic Thickness MM 1.1 cm 0.6 - 1.0 / 0.6 - 0.9 cm LVPW Systolic Thickness MM 1.6 cm RV Diastolic Diameter MM 1.8 cm Aortic Annulus Diameter 3.4 cm LA Ao Ratio MM 1.1 MV E Point Septal Separation 0.8 cm DOPPLER AV Peak Velocity 165.0 cm/s LVOT Peak Velocity 126.0 cm/s AV Area Cont Eq vti 1.8 cm squared AV Area Cont Eq pk 2.4 cm squared MV Area PHT 5.0 cm squared Mitral E to A Ratio 1.3 MV E' Velocity 9.0 cm/s Mitral E to MV E' Ratio 17.0 Mitral E to LV E' Lateral Ratio 15.9 Mitral E to LV E' Septal Ratio 18.6 TR Peak Velocity 172.0 cm/s TR Peak Gradient 11.8 mmHg TV Peak E Velocity 89.0 cm/s Right Atrial Pressure 3.0 mmHg Pulmonary Artery Systolic Pressu 14.8 mmHg FINDINGS Left Ventricle Normal left ventricular cavity size. Normal left ventricular systolic function. Left ventricular ejection fraction is estimated at 75 %. No regional wall motion abnormalities. Normal diastolic function. Right Ventricle Normal right ventricular size and systolic function. Right ventricular systolic pressure 14.8 mmHg. Right Atrium Normal right atrial size. Left Atrium Upper normal left atrial size. Mitral Valve Mild mitral annular calcification. No mitral valve stenosis. Mild mitral valve regurgitation. Aortic Valve Aortic valve not well visualized. Aortic valve sclerosis without stenosis. No aortic valve regurgitation. Tricuspid Valve Tricuspid valve not well visualized. Trace tricuspid valve regurgitation. Pulmonic Valve Pulmonic valve not well visualized. Pericardium No pericardial effusion. Echo free space anterior to the right ventricle likely represents a fat pad. Aorta Normal-sized aortic root. CONCLUSIONS 1. Normal left ventricular cavity size. Normal left ventricular systolic function. Left ventricular ejection fraction is estimated at 75 %. No regional wall motion abnormalities. 2. Normal right ventricular size and systolic function. 3. Mild mitral valve regurgitation. 4. Normal pulmonary artery pressure. 5. When compared to previous echocardiogram dated 11/02/2014, there may not have been any significant change. Lynn Purcell MD (Electronically Signed) Final Date: 06 September 2019 18:07 S
[2019-09-06 09:33] LABS: Alanine Aminotransferase 13 U/L (0-33); Albumin Level 3.5 g/dL (3.5-5.2); Alkaline Phosphatase 58 IU/L (35-105); Anion Gap 16.5 (5-19); Aspartate Amino Transferase 27 U/L (0-32); Blood Urea Nitrogen 22 mg/dL (8-23); Calcium 9.8 mg/Dl (8.8-10.2); Carbon Dioxide 26 mmol/L (22-29); Chloride 92 mmol/L (98-107); Globulin 2.5 g/dL (1.3-4.6); Glucose 134 mg/dL (74-106); Iron 21 ug/dL (37-145); Potassium 3.5 mmol/L (3.5-5.1); Sodium 131 mmol/L (136-145); Total Bilirubin 0.6 mg/dL (0.15-1.2); Total Iron Binding Capacity 231 mg/dL; Unsaturated Iron Binding 210 ug/dL (112-347)
[2019-09-06] MEDS: fexofenadine 60 mg Tablet 180 MG PO (09:40)
[2019-09-06] MEDS: cefUROXime 250 mg Tablet 500 MG PO ×2 (09:40→17:24)
[2019-09-06] MEDS: aspirin 81 mg EC Tablet PO (09:40)
[2019-09-06] MEDS: apixaban 5 mg Tablet 2.5 MG PO ×2 (09:40→17:23)
[2019-09-06] MEDS: losartan 50 mg Tablet PO (09:41)
[2019-09-06] MEDS: amlodipine 5 mg Tablet PO (09:41)
[2019-09-06] MEDS: citalopram 20 mg Tablet PO (09:41)
[2019-09-06] MEDS: atorvastatin 40 mg Tablet 20 MG PO (09:41)
[2019-09-06 10:25] LABS: Basophils % 0.3 %; Eosinophils % 0.3 %; Hematocrit 33.1 % (37.0-47.0); Lymphocytes # 0.7 10^3/uL (0.8-4.8); Lymphocytes % 5.8 %; Mean Corpuscular HGB Conc 33.2 g/dL (30.0-36.0); Mean Corpuscular Hemoglobin 29.5 pg (28.0-34.0); Mean Corpuscular Volume 88.7 fL (81-99); Mean Platelet Volume 11.3 fL (7.4-10.4); Monocytes % 8.5 %; Neutrophils # 9.7 10^3/uL (1.8-7.7); Neutrophils % 84.5 %; Nucleated Red Blood Cells % 0 %; Platelet Count 284 10^3/cmm (130-400); Red Blood Count 3.73 10^6/uL (4.1-5.3); White Blood Count 11.5 10^3/uL (4.0-10.0)
[2019-09-06 10:50] LABS: Bilirubin Urine Neg (NEGATIVE); Blood Urine Neg (Negative); Glucose Urine UA Norm (Normal); Ketones Urine Negative (Negative); Leukocyte Esterase Urine Negative (Negative); Nitrate Urine Negative (Negative); Protein Urine Neg (Negative); Specific Gravity, Urine 1.005 (1.005-1.030); Urine Appearance Clear (CLEAR); Urine Color Straw (Yellow); Urobilinogen Urine Norm (Negative)
[2019-09-06 11:00] LABS: Bacteria Urine TRACE; Squamous Epithelial Cell Urine 0-4 (0-5)
[2019-09-06 11:01] LABS: Add Urine Culture? No
[2019-09-06 13:44] LABS: Oxygen Device NC
[2019-09-06] MEDS: TRAMadol 50 mg Tablet PO ×2 (14:49→19:12)
[2019-09-06] MEDS: FUROsemide 10 mg/mL SDV 4mL 40 MG IVP (14:49)
--- NOTE | 2019-09-06 16:20 | P.PN_ITS ---
Subjective Subjective: Interval history: Admitted overnight. H&P and labs noted. This morning on evaluation patient is lying comfortably in bed. Denies of having further shortness of breath. Saturating more than 92% on 2 L nasal cannula. Denies of having any nausea, vomiting, headache, palpitations, abdominal pain, dysuria, diarrhea, change in her bowel movements. As per her daughter who is bedside patient states her mentation is improved a lot. At present patient is AO x3. Vitals/I&O/Wt Last Vital Signs Temp 98.5 F 09/06/19 16:00 Pulse 100 09/06/19 16:00 Resp 18 09/06/19 16:00 BP 168/76 09/06/19 16:00 Pulse Ox 93 09/06/19 16:00 09/06/19 09/06/19 09/06/19 06:59 14:59 22:59 Intake Total 180 / 180 360 / 360 Output Total 900 / 900 650 / 650 600 / 1250 Balance -720 / -720 -290 / -290 -600 / -890 Weight last 48 hrs Weight 101.242 kg Weight 102.965 kg Physical Exam Narrative: EXAM NARRATIVE: General: No acute distress, AO x3 HEENT: PERRLA, pupils bilaterally equal and reactive Chest: Bilateral occasional fine crackles in the lower zones, posterior more than anterior, normal vesicular breath sounds, equal good air entry bilaterally CVS: S1-S2 regular, pansystolic murmur soft in mitral area, no tachycardia, no gallops, no rubs Abdomen: Soft, nontender, no organomegaly, bowel sounds present Neuro: No focal deficits, no facial deformity, AO x3, power 5/5 in all limbs A&P Assessment and plan (1) Altered mental status: Status: Acute Code(s): R41.82 - Altered mental status, unspecified (2) Coronary artery disease: Status: Chronic Code(s): I25.10 - Atherosclerotic heart disease of [place] coronary artery without angina pectoris (3) Hypertension: Status: Chronic Code(s): I10 - Essential (primary) hypertension (4) Status post total right knee replacement: Status: Chronic Code(s): Z96.651 - Presence of right artificial knee joint (5) Diastolic heart failure: Status: Acute Code(s): I50.30 - Unspecified diastolic (congestive) heart failure Additional A&P Information Additional A&P Information: Altered mental status: Most likely secondary to excessive opiates given the recent orthopedic surgery. Mentation has improved and patient is back to baseline AO x3 at present. No infiltrates on chest x-ray and CT chest negative for any consolidation. Patient remains afebrile and hemodynamically stable. Infectious cause unlikely. Check UA, pro calcitonin. proBNP elevated. We will hold off on any narcotics for now. We will continue on home dose of tramadol for pain because of recent orthopedic surgery. Continue with IV Lasix 40 mg daily. Strict intake and output charting. Daily weights. Echo already ordered. Hypertension: Continue on home dose of amlodipine, losartan instead of olmesartan. We will also continue the home dose of bisoprolol. We will monitor the blood pressure. If continues to remain high can increase the dose of losartan. Recent orthopedic surgery: Continue and finish the course of Ceftin as prescribed. Continue Eliquis 2.5 mg twice daily after DVT prophylaxis. Continue home dose of aspirin and statins. Full code Cardiac diet. Can transfer patient out to the floors. If patient continues to improve can plan to discharge tomorrow. Attestations Medical Necessity Statement*: Needs continued hospitalization for management of altered mental status in view of excessive opiates and congestive heart failure Time Spent in Patient Care: Greater than 35 minutes Coding Level of Care Code Acute Food Beverage Supervisor for Luis Motley Diagnoses Altered mental status R41.82 Coronary artery disease I25.10 Hypertension I10 Status post total right knee replacement Z96.651 Diastolic heart failure I50.30
[2019-09-06 17:44] LABS: Influenza A by IFA Negative (Negative); Influenza B by IFA Negative (Negative)
--- NOTE | 2019-09-06 21:51 | PC.NURSE ---
Up to bathroom x1 with assist of daughter and walker. Dressing to right knee dry and intact. Hasn't had PT yet cause I haven't been home. Will relay to oncoming shift. Denies complaints at this time. Will monitor.
--- NOTE | 2019-09-06 22:03 | PC.NURSE ---
Family concerned about patient's rambling. Continues to play with heart monitor;however, will follow commands when asked. Family wondering if patient, had that test where they check the blood flow to the neck....if she hasn't had it, I think she needs it. This nurse explained to family that I would check and see and let them know. Family in agreement. Will monitor.
--- NOTE | 2019-09-06 22:54 | PC.NURSE ---
Patient had heart monitor, oxygen and oxygen saturation monitor off. Re-applied all of the above. Denies pain at this time. Will monitor.
[2019-09-07] VITALS (7 sets, daily range): BP systolic 116–125; BP diastolic 66–92; PULSE 80–112; RESP 16–23; TEMP 36.7–37; O2SAT 90–97
--- NOTE | 2019-09-07 00:32 | PC.NURSE ---
Just informed by RT that patient has refused breathing treatments and told RT to shut his oxygen off even though his oxygen saturation was 91-92% with oxygen. Will monitor.
[2019-09-07] MEDS: TRAMadol 50 mg Tablet PO (04:46)
[2019-09-07 05:53] LABS: Basophils % 0.3 %; Eosinophils # 0.1 10^3/uL (0.0-0.8); Eosinophils % 1.1 %; Hematocrit 30.9 % (37.0-47.0); Hemoglobin 10.6 g/dL (11.5-15.3); Lymphocytes # 1.1 10^3/uL (0.8-4.8); Lymphocytes % 12.1 %; Mean Corpuscular HGB Conc 34.3 g/dL (30.0-36.0); Mean Corpuscular Hemoglobin 29.8 pg (28.0-34.0); Mean Corpuscular Volume 86.8 fL (81-99); Mean Platelet Volume 11.4 fL (7.4-10.4); Monocytes # 1.3 10^3/uL (0.2-0.9); Monocytes % 13.9 %; Neutrophils # 6.5 10^3/uL (1.8-7.7); Nucleated Red Blood Cells % 0 %; Platelet Count 275 10^3/cmm (130-400); Red Blood Count 3.56 10^6/uL (4.1-5.3); Red Cell Distribution Width 12.7 % (12.1-15.1)
[2019-09-07 06:12] LABS: Alanine Aminotransferase 20 U/L (0-33); Albumin Level 3.5 g/dL (3.5-5.2); Alkaline Phosphatase 76 IU/L (35-105); Anion Gap 14.5 (5-19); Aspartate Amino Transferase 34 U/L (0-32); Blood Urea Nitrogen 16 mg/dL (8-23); Calcium 9.7 mg/Dl (8.8-10.2); Carbon Dioxide 35 mmol/L (22-29); Chloride 87 mmol/L (98-107); Glucose 139 mg/dL (74-106); Sodium 134 mmol/L (136-145); Total Bilirubin 0.9 mg/dL (0.15-1.2); Total Protein 6.5 g/dL (6.6-8.7)
[2019-09-07 06:24] LABS: Potassium 2.5 mmol/L (3.5-5.1)
[2019-09-07] MEDS: cefUROXime 250 mg Tablet 500 MG PO ×2 (08:43→17:40)
[2019-09-07] MEDS: atorvastatin 40 mg Tablet 20 MG PO (08:43)
[2019-09-07] MEDS: aspirin 81 mg EC Tablet PO (08:44)
[2019-09-07] MEDS: apixaban 5 mg Tablet 2.5 MG PO ×2 (08:44→17:40)
[2019-09-07] MEDS: losartan 50 mg Tablet PO (08:44)
[2019-09-07] MEDS: fexofenadine 60 mg Tablet 180 MG PO (08:44)
[2019-09-07] MEDS: citalopram 20 mg Tablet PO (08:44)
[2019-09-07] MEDS: amlodipine 5 mg Tablet PO (08:44)
[2019-09-07] MEDS: potassium chloride premix 40 MEQ/100 ML PREMIX 25 MEQ IV ×2 (08:45→12:47)
[2019-09-07] MEDS: ondansetron 2 mg/ML SDV 2 mL 4 MG IVP (12:47)
[2019-09-07] MEDS: FUROsemide 10 mg/mL SDV 4mL 40 MG IVP (14:59)
--- NOTE | 2019-09-07 15:41 | PC.CHAP ---
Pastoral Care Encounter/Spiritual Assessment Type of Contact [] Declined supervisor billposting visit [x Pastoral Care Encounter/Spiritual Assessment Type of Contact [] Declined supervisor billposting visit [x] Patient/Family/Request visit [] Outpatient visit [] Follow-up visit [] Physician referral [] Code/Alert [] Routine visit [] Staff referral [] Actively dying [] Patient sleeping [] Family support [] [] Out of room [] Palliative care [] [] Receiving care in room [] Pre-surgical visit [] Trauma [] Long length of stay [] ICU visit [] Other: Relational/Emotional Strength [] Patient feels connected with others/family/visitors/staff [] Distress [] Loneliness/isolation [] Abandonment Spirituality of Patient [x] Person of Kaila [x] Attends Jain of their Kaila [x] Believes in Prayer [x] Reads Bible or Taoist materials [] There are Spiritual issues to be addressed Scrubbing Machine Operator Interventions [x] Prayer [x] Active listening [x] Non-anxious presence [x] Spiritual/emotional support [] Crisis/trauma care [] Spiritual counseling [] Bereavement support [] Provided bereavement packet [] Provided Bible/devotional materials [] Provided toy/stuffed animal, coloring book to patient or family member [x] Completed spiritual assessment [] Provided Communion [] Anointing/Corsica [] Salvation [] Other: Impact on Illness or Injury [] Angry [] Fearful [] Anxious [] Often cries [x] Exhaustion [] Unable to work [x] Unable to attend muslim []x Unable to walk/stand [] Unable to read [] Unable to drive [] Unable to eat/drink [] Unable to sleep [] Unable to be with family [] Other: Summary was a real enjoyment to talk to her loves god with all her heart zach agrue Time spent with patient ] Patient/Family/Request visit [] Outpatient visit ] Follow-up visit [] Physician referral [] Code/Alert [] Routine visit [] Staff referral [] Actively dying [] Patient sleeping [] Family support [] [] Out of room [] Palliative care [] [] Receiving care in room [] Pre-surgical visit [] Trauma [] Long length of stay [] ICU visit [] Other: Relational/Emotional Strength [] Patient feels connected with others/family/visitors/staff [] Distress [] Loneliness/isolation [] Abandonment Spirituality of Patient [] Person of Kaila [] Attends Jain of their Kaila [] Believes in Prayer [] Reads Bible or Taoist materials [] There are Spiritual issues to be addressed Scrubbing Machine Operator Interventions [] Prayer [] Active listening [] Non-anxious presence [] Spiritual/emotional support [] Crisis/trauma care [] Spiritual counseling [] Bereavement support [] Provided bereavement packet [] Provided Bible/devotional materials [] Provided toy/stuffed animal, coloring book to patient or family member [] Completed spiritual assessment [] Provided Communion [] Anointing/Corsica [] Salvation [] Other: Impact on Illness or Injury [] Angry [] Fearful [] Anxious [] Often cries [] Exhaustion [] Unable to work [] Unable to attend muslim [] Unable to walk/stand [] Unable to read [] Unable to drive [] Unable to eat/drink [] Unable to sleep [] Unable to be with family [] Other: Summary Time spent with patient
--- NOTE | 2019-09-07 17:36 | P.PN_ITS ---
Subjective Subjective: Interval history: hypokalemia to 2.5 this morning, patient received 80meq supplemental K. Repeat CMP ordered. Per daughters mental status is significantly improved but not quite at baseline. It appears that patient is still in a fog . She is completely alert alert awake and oriented of my examination today Medications: Reviewed: Yes Vitals/I&O/Wt Last Vital Signs Temp 98.0 F 09/07/19 15:07 Pulse 87 09/07/19 15:32 Resp 16 09/07/19 15:07 BP 117/92 09/07/19 15:07 Pulse Ox 94 09/07/19 15:32 09/07/19 09/07/19 09/07/19 06:59 14:59 22:59 Intake Total 360 / 960 460 / 460 Balance 360 / -290 460 / 460 Weight last 48 hrs Weight 101.242 kg Weight 102.965 kg Physical Exam Narrative: EXAM NARRATIVE: GEN: Awake, alert and oriented, no acute distress CVS: S1S2 N RS: CTA B/L except crackles over RUL Abd: Soft, nt/nd , bs+ IMPORT SPECIALIST: no focal neuro deficits EXT: post surgical dressing over right knee, not opened for exam. Data Micro: Micro: Microbiology 09/06/19 14:37 MRSA Culture - Fin al Nose 09/06/19 09:50 Urine Culture - Pr eliminary Urine,Clean Catch A&P Assessment and plan (1) Altered mental status: Status: Acute Code(s): R41.82 - Altered mental status, unspecified (2) Coronary artery disease: Status: Chronic Code(s): I25.10 - Atherosclerotic heart disease of [place] coronary artery without angina pectoris (3) Hypertension: Status: Chronic Code(s): I10 - Essential (primary) hypertension (4) Status post total right knee replacement: Status: Chronic Code(s): Z96.651 - Presence of right artificial knee joint (5) Diastolic heart failure: Status: Acute Code(s): I50.30 - Unspecified diastolic (congestive) heart failure Additional A&P Information Altered mental status: Most likely secondary to excessive opiates given the recent orthopedic surgery. Mentation has improved and patient is back to baseline AO x3 at present. No infiltrates on chest x-ray and CT chest negative for any consolidation. Patient remains afebrile and hemodynamically stable. Infectious cause unlikely. We will hold off on any further narcotics. We will continue on home dose of tramadol, pain currently adequatly controlled. Continue with IV Lasix 40 mg daily. Strict intake and output charting. Daily weights. ECHo with LVEF 75%. Hypertension: Continue on home dose of amlodipine, losartan instead of olme sartan. We will also continue the home dose of bisoprolol. We will monitor the blood pressure. If continues to remain high can increase the dose of losartan. Recent orthopedic surgery: Continue and finish the course of Ceftin as prescribed. Continue Eliquis 2.5 mg twice daily after DVT prophylaxis. Continue home dose of aspirin and statins. Hypokalemia: Supplemented with 80meq iv potassium. Repeat now. Full code Cardiac diet. Can transfer patient out to the floors. If patient continues to improve can plan to discharge tomorrow. Attestations Medical Necessity Statement*: management of AMS likely 2/2 unintentional excess opiate use. Coding Level of Care Code Acute Vision Impaired Teacher for Luis Motley Diagnoses Altered mental status R41.82 Coronary artery disease I25.10 Hypertension I10 Status post total right knee replacement Z96.651 Diastolic heart failure I50.30
[2019-09-07 18:02] LABS: Alanine Aminotransferase 22 U/L (0-33); Albumin Level 3.3 g/dL (3.5-5.2); Alkaline Phosphatase 80 IU/L (35-105); Anion Gap 17.4 (5-19); Aspartate Amino Transferase 34 U/L (0-32); Blood Urea Nitrogen 16 mg/dL (8-23); Calcium 9.3 mg/Dl (8.8-10.2); Carbon Dioxide 31 mmol/L (22-29); Chloride 86 mmol/L (98-107); Globulin 3.6 g/dL (1.3-4.6); Glucose 138 mg/dL (74-106); Potassium 3.4 mmol/L (3.5-5.1); Sodium 131 mmol/L (136-145); Total Bilirubin 0.9 mg/dL (0.15-1.2); Total Protein 6.9 g/dL (6.6-8.7)
[2019-09-08] VITALS (9 sets, daily range): BP systolic 99–175; BP diastolic 52–64; PULSE 72–102; RESP 18–20; TEMP 36.7–37; O2SAT 84–96
[2019-09-08] MEDS: TRAMadol 50 mg Tablet PO (04:17)
[2019-09-08] MEDS: atorvastatin 40 mg Tablet 20 MG PO (09:03)
[2019-09-08] MEDS: losartan 50 mg Tablet PO (09:03)
[2019-09-08] MEDS: cefUROXime 250 mg Tablet 500 MG PO (09:04)
[2019-09-08] MEDS: fexofenadine 60 mg Tablet 180 MG PO (09:04)
[2019-09-08] MEDS: apixaban 5 mg Tablet 2.5 MG PO (09:04)
[2019-09-08] MEDS: citalopram 20 mg Tablet PO (09:04)
[2019-09-08] MEDS: amlodipine 5 mg Tablet PO (09:04)
[2019-09-08] MEDS: aspirin 81 mg EC Tablet PO (09:05)
[2019-09-08] MEDS: acetaminophen 325 mg Tablet 650 MG PO (10:32)
--- NOTE | 2019-09-08 18:45 | P.DS_ITS ---
Discharge Providers Date of Admission: 09/06/19 03:32 Date of Discharge: 09/08/19 Attending Provider at Admission: Kareem Doss DO Attending Provider at Discharge: Brooke Carter MD Primary Care Provider: Van Rosas MD Diagnoses at Discharge Discharge Diagnosis (1) Altered mental status: Status: Acute (2) Coronary artery disease: Status: Chronic (3) Hypertension: Status: Chronic (4) Status post total right knee replacement: Status: Chronic (5) Diastolic heart failure: Status: Acute Reason for Visit Reason for Visit: Reason For Visit: HYPOXIC RESP FAILURE, PULMONARY EDEMA Hospital Course Discharge Summary: Dai Cavazos is a 79 year old female with a total right knee arthroplasty on 09/02/2019, hypertension presents with altered mental status. In ED patient was noted to be hypoxemic saturating in 70s?80s. CT chest was negative for PE but showed pulmonary edema. Patient has a history of obstructive sleep apnea in the past but is unclear if she was using her CPAP machine at home. Upon admission her opiates were held and her mental mental status started to improve over the next day. She also received diuresis with IV Lasix because of pulmonary edema noticed on the chest x-ray. An echocardiogram was performed which shows LVEF of 70% and no diastolic failure. It is unclear as to the cause of pulmonary edema however possible that she may have received excess of fluid resuscitation after surgery. An interestingly her family reported that even with her prior surgeries she has had issues with low oxygen saturation which resolved after a few days. She has also required supplemental O2 in the past. Home O2 eval was performed and she did qualify for 2 L at rest up to 3 L on exertion. At time of discharge today she denies any complaints of chest pain dyspnea palpitations or dizziness. She is being discharged with recommendations to follow-up with her primary care provider within the next 3 to 4 days. She is clinically euvolemic at the time of discharge therefore Lasix has not been continued. Physical Exam Narrative: EXAM NARRATIVE: GEN: Awake, alert and oriented, no acute distress CVS: S1S@ N RS: CTA B/L all areas Abd: Soft, nt/nd , bs+ QUILLER HAND: no focal neuro deficits Discharge Data Data Completed and Pending: Completed Studies During Hospitalization Category Date Time Status CT angio chest PE protcl [id number] Urge nt Cat Scan 09/06/19 01:24 Completed XR chest 1V chidi ble [id number] Stat Exams 09/06/19 00:53 Completed CV echo complete* [id number] Routine Ultrasound 09/06/19 06:24 Completed Vitals: Last Vital Signs Temp 98.6 F 09/08/19 13:26 Pulse 77 09/08/19 10:36 Resp 19 H 09/08/19 13:26 BP 152/64 09/08/19 13:26 Pulse Ox 94 09/08/19 13:26 Discharge Plan Discharge Patient Disposition: Home, Self-Care Condition: Stable Prescriptions: New acetaminophen 325 mg Tablet 650 mg PO Q6H PRN (Reason: Mild Pain) Qty: 0 RF: 0 Eliquis 5 mg Tablet 2.5 mg PO BID Qty: 0 RF: 0 Continued indapamide 2.5 mg tablet 2.5 mg PO DAILY RF: 0 pravastatin 40 mg tablet 40 mg PO DAILY RF: 0 amlodipine 5 mg tablet 5 mg PO DAILY RF: 0 bisoprolol fumarate 10 mg tablet 10 mg PO DAILY RF: 0 citalopram 20 mg tablet 20 mg PO DAILY RF: 0 olmesartan 20 mg tablet 20 mg PO DAILY RF: 0 fexofenadine [Nazanin Allergy] 180 mg Tablet 180 mg PO DAILY RF: 0 aspirin [Aspir-81] 81 mg Tablet,Delayed Release (Dr/Ec) 81 mg PO DAILY RF: 0 cranberry 400 mg Capsule 400 mg PO DAILY RF: 0 tramadol 50 mg Tablet 50 mg PO Q4H PRN (Reason: Pain, Moderate) Qty: 40 RF: 0 cefuroxime axetil 500 mg tablet 500 mg PO BID 7 Days Qty: 14 RF: 0 Discontinued oxycodone 5 mg Tablet 5 mg PO Q4H PRN (Reason: Moderate Pain) Qty: 30 RF: 0 Eliquis 5 mg Tablet 2.5 mg PO BID Qty: 14 RF: 0 Discharge Orders: Discharge Order (Routine); Ordered 09/08/19 Ordered By: Brooke Carter Other Ambulatory Orders: DME: Oxygen (Order) Location: None Selected Ordered By: Brooke Carter Referrals: [facility] ([facility]) [Outside] Van Rosas MD [Primary Care Provider] - 1-3 days (YOU HAVE A FOLLOW UP APPOINMENT SCHEDULED ON 09/10/[address] ROSAS AT [facility] AT 3:45 PM , IF YOU HAVE ANY QUESTIONS CALL [phone]) Patient Instructions: Hypertension, Heart Failure (DC), Coronary Artery Disease (DC), Altered Mental Status (GEN) Discharge Date/Time: 09/08/19 15:16 Discharge Attestations Time Spent in Discharge Care*: greater than 30 min Status at Discharge: Cognitive status at discharge: cognitively intact , Behavioral status at discharge: cooperative , Quality Metrics Clinical Quality Measures During this hospital stay, did patient experience: None Coding Level of Care Code Acute Revenue Field Auditor for Luis Fwelizabeth Diagnoses Altered mental status R41.82 Coronary artery disease I25.10 Hypertension I10 Status post total right knee replacement Z96.651 Diastolic heart failure I50.30
== END 2019-09-08 15:16 | disposition home or self-care (01) | DRG 947 ==
LOC: ER 23:20 → ICU 09-06 03:33 → CSU 09-06 15:50
PROVIDERS: Student in an Organized Health Care Education/Training Program; Admitting Provider Internal Medicine; Emergency Provider Emergency Medicine; Family Provider Family Medicine; PCP Family Medicine; Visit Provider Student in an Organized Health Care Education/Training Program
DX: R41.82 Altered mental status, unspecified (principal); J96.01 Acute respiratory failure with hypoxia; I50.31 Acute diastolic (congestive) heart failure; J98.11 Atelectasis; T40.605A Adverse effect of unspecified narcotics, initial encounter; I25.10 Atherosclerotic heart disease of native coronary artery without angina pectoris; Z96.651 Presence of right artificial knee joint; E87.6 Hypokalemia; I11.0 Hypertensive heart disease with heart failure; G47.33 Obstructive sleep apnea (adult) (pediatric)
CPT/HCPCS: 12345; 36415; 36600; 71045; 71275; 80053; 81001; 82805; 83540; 83550; 83605; 83880; 84145; 84484; 85025; 85610; 87086; 87641; 87804; 93005; 93306; 94640; 96374; 96375; 99221; 99282; J1940; J1956; J2405; J3480; Q9967

== ENCOUNTER → 2019-10-01 11:42 | Outpatient (BNVA) | payer MEDICARE, OTHER, SELFPAY | PROVIDERS: Family Provider Family Medicine; PCP Family Medicine; Visit Provider Orthopaedic Surgery | DX: Z48.89 Encounter for other specified surgical aftercare (principal); Z96.653 Presence of artificial knee joint, bilateral | CPT/HCPCS: 73562 ==

== ENCOUNTER → 2020-02-28 11:28 | Outpatient (BNVA) | payer MEDICARE, OTHER, SELFPAY | PROVIDERS: Family Provider Family Medicine; PCP Family Medicine; Visit Provider Orthopaedic Surgery | DX: Z96.651 Presence of right artificial knee joint (principal) | CPT/HCPCS: 73560; 73565 ==

== ENCOUNTER 2021-04-04 12:44 | Outpatient (CLI) | payer MEDICARE, OTHER, SELFPAY ==
[2021-04-04 13:05] VITALS: BP 126/58; PULSE 64; RESP 18; TEMP 36.8; O2SAT 94
[2021-04-04 14:20] VITALS: BP 127/55; PULSE 62; RESP 18; TEMP 37
== END 2021-04-04 12:45 | disposition home or self-care (01) ==
PROVIDERS: PCP Family Medicine; Visit Provider Nurse Practitioner
DX: U07.1 COVID-19 (principal)
CPT/HCPCS: 96365

== ENCOUNTER 2024-06-19 16:10 | Inpatient (IN) | payer MEDICARE, OTHER, SELFPAY ==
[2024-06-19] VITALS (38 sets, daily range): BP systolic 118–184; BP diastolic 42–102; PULSE 61–80; RESP 14–29; TEMP 37; O2SAT 87–100; BMI 36.7; BMI 38.2
--- NOTE | 2024-06-19 16:11 | CTR_ITS ---
PROCEDURE INFORMATION: Exam: CT Head Without Contrast Exam date and time: 06/19/2024 4:12 PM Age: 83 years old Clinical indication: Stroke-like symptoms; Altered mental status/memory loss; Additional info: Symptoms of acute stroke TECHNIQUE: Imaging protocol: Computed tomography of the head without contrast. Radiation optimization: All CT scans at this facility use at least one of these dose optimization techniques: automated exposure control; mA and/or kV adjustment per patient size (includes targeted exams where dose is matched to clinical indication); or iterative reconstruction. Other technique: STROKE PROTOCOL was implemented. COMPARISON: No relevant prior studies available. RADIATION DOSE METRICS: Total DLP (mGy-cm): 1024.88 FINDINGS: Brain: No hemorrhage. No edema. Moderate diffuse cerebral atrophy and mild sequela of chronic small vessel ischemic disease. Old lacunar infarct noted in the left basal ganglia. No mass effect. Cerebral ventricles: No ventriculomegaly. Paranasal sinuses: Visualized sinuses are unremarkable. No fluid levels. Mastoid air cells: Visualized mastoid air cells are well aerated. Bones: Unremarkable. No acute fracture. Soft tissues: Unremarkable. CT/CT head thrombolytic [id number] IMPRESSION: No acute intracranial abnormality. ASSESSMENT: ASPECTS ([place] Stroke Program Early CT Score) is 10.
[2024-06-19 16:39] LABS: Basophils # 0.1 10^3/uL (0.0-0.1); Basophils % 0.6 %; Eosinophils # 0.2 10^3/uL (0.0-0.8); Eosinophils % 2.5 %; Hematocrit 41.5 % (36-47); Lymphocytes # 2.7 10^3/uL (0.8-4.8); Lymphocytes % 31.2 %; Mean Corpuscular HGB Conc 33.7 g/dL (30-55); Mean Corpuscular Hemoglobin 30.3 pg (27-33); Mean Corpuscular Volume 89.8 fl (85-98); Mean Platelet Volume 9.9 fL (7.4-10.4); Monocytes # 0.8 10^3/uL (0.2-0.9); Monocytes % 9.7 %; Neutrophils # 4.77 10^3/uL (1.8-7.7); Neutrophils % 55.6 %; Nucleated Red Blood Cells % 0 %; Platelet Count 318 10^3/cmm (157-399); Red Blood Count 4.62 10^6/uL (3.85-5.65); Red Cell Distribution Width 12.9 % (12.1-15.1); White Blood Count 8.56 10^3/uL (3.29-11.43)
[2024-06-19] MEDS: tenecteplase 50mg Kit (STROKE) 23 MG IVP (16:45)
[2024-06-19 16:48] LABS: INR 0.93 (0.8-1.2); Partial Thromboplastin Time 23.8 SECONDS (23.9-36.7)
--- NOTE | 2024-06-19 16:51 | PM.SAN ---
Stroke Alert Activation ED Arrival Date: 06/19/24 ED Arrival Time: 16:11 ED Physican at Bedside: 16:11 Last Known Normal/at Baseline: 1-2 hours ago Other Last Known Well Infomation: She went to a birthday constitution party for her granddaughter and left there at 1530 in her usual state of health. The family noticed that as she backed out of the driveway, she took this somewhat wide turn. She drove several miles down the road and pulled into her own driveway, but then backed up and slammed into a decorative stone in the yard. Her grandson was there and noticed that she was altered and discovered that she was not making very much sense. She could not see. She arrived here in our emergency department at 1611 and a stroke alert was called. I immediately called and talked with the nurse, and Dr. Howard was in with the patient. As soon as he finished evaluating the patient he called me, described that the patient had homonymous hemianopsia, nausea and vomiting and was unable to walk. We agreed that the patient was having a posterior circulation stroke. She had a negative CT of the head already read by the virtual radiologist. Dr. Howard confirmed that she was not on a blood thinner even though she had been in the past. She reported that she had not been on that for many years. We agreed that the patient should receive TNK. I came directly to the emergency department and evaluated the patient. It took some time for the nurses to prepare the TNKase bolus to get the bubbles out of the medication but the bolus was given at 1445, 75 minutes after onset of symptoms, 34 minutes after arrival. The patient gave informed consent to me and her daughter and granddaughter were present. Her exam was remarkable for a dense left hemisensory defect and dense left homonymous hemianopsia including the macula. She is no longer nauseated. I placed her in a flat position and we are giving her 1 L of normal saline wide open. Stroke Alert Activated by: Dr. Howard Stroke Alert Activation Time: 16:11 Stroke MD @ Bedside Time: 16:12 NIH Stroke Scale Time: 16:30 NIH stroke score NIHSS: Level Of Consciousness - 1a: 0 Level Of Consciousness Questions - 1b: Both Correct Level Of Consciousness Commands - 1c: Both Correct Best Gaze - 2: Normal Visual Mckeon - 3: Complete Hemianopia Facial Palsy - 4: Minor Paralysis Motor Arm Right - 5: No Drift Motor Arm Left - 5: Drift Motor Leg Right - 6: No Drift Motor Leg Left - 6: Drift Limb Ataxia - 7: Present In One Limb Sensory - 8: Severe To Total Loss Best Language - 9: No Aphasia Dysarthia - 10: Normal Extinction And Inattention - 11: 0 Score: Total Score: 8 Stroke Alert Data/Treatment Time to CT of Head: 16:11 CT Results Time: 16:12 CT Impression: normal. question slight calcification of the right frontal falx Ordering Provider/Ordering MD: Jennie Mendez MD Date of Service: 06/19/24 Procedure(s): CT head thrombolytic 09400 Accession Number(s): [id number] Report Number: [id number] PROCEDURE INFORMATION: Exam: CT Head Without Contrast Exam date and time: 06/19/2024 4:12 PM Age: 83 years old Clinical indication: Stroke-like symptoms; Altered mental status/memory loss; Additional info: Symptoms of acute stroke TECHNIQUE: Imaging protocol: Computed tomography of the head without contrast. Radiation optimization: All CT scans at this facility use at least one of these dose optimization techniques: automated exposure control; mA and/or kV adjustment per patient size (includes targeted exams where dose is matched to clinical indication); or iterative reconstruction. Other technique: STROKE PROTOCOL was implemented. COMPARISON: No relevant prior studies available. RADIATION DOSE METRICS: Total DLP (mGy-cm): 1024.88 FINDINGS: Brain: No hemorrhage. No edema. Moderate diffuse cerebral atrophy and mild sequela of chronic small vessel ischemic disease. Old lacunar infarct noted in the left basal ganglia. No mass effect. Cerebral ventricles: No ventriculomegaly. Paranasal sinuses: Visualized sinuses are unremarkable. No fluid levels. Mastoid air cells: Visualized mastoid air cells are well aerated. Bones: Unremarkable. No acute fracture. Soft tissues: Unremarkable. CT/CT head thrombolytic [id number] IMPRESSION: No acute intracranial abnormality. ASSESSMENT: ASPECTS ([place] Stroke Program Early CT Score) is 10. 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 Her findings are consistent with a right posterior cerebral artery stroke including the thalamus. Her deficit is severe. She was able to get TNK within 1 hour and 15 minutes of onset of symptoms. She will be placed in ICU and standard stroke orders in place. Hold off on antiplatelet therapy for 24 hours. She was on apixaban in the past and we will need to determine whether she has atrial fibrillation. Currently she is in normal sinus rhythm. Currently stable and doing well. Keeping flat and getting IV fluids because her stroke is posterior circulation. She is in the process of having CT angiogram during this dictation. 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
--- NOTE | 2024-06-19 16:52 | ECG_ITS ---
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 Measurements Intervals [place] Rate: 65 P: 90 ME: 208 QRS: 38 QRSD: 76 T: 51 QT: 349 QTc: 363 Interpretive Statements SINUS RHYTHM WITH SINUS ARRHYTHMIA SEPTAL MYOCARDIAL INFARCTION , PROBABLY OLD [40+ ms Q WAVE IN V1/V2] Compared to ECG 09/06/2019 05:25:44 Myocardial infarct finding now present T-wave abnormality no longer present Electronically Signed On 06-21-2024 00:01:04 CDT by Sherry Mina M.D. [email or web address]
[2024-06-19 16:53] LABS: Alanine Aminotransferase 12 U/L (0-33); Albumin Level 4.3 g/dL (3.5-5.2); Alkaline Phosphatase 72 U/L (35-105); Anion Gap 14.6 (5-19); Aspartate Amino Transferase 12 U/L (0-32); Blood Urea Nitrogen 23 mg/dL (8-23); Carbon Dioxide 28 mmol/L (22-29); Chloride 100 mmol/L (98-107); Creatinine Clr Calc Pharmacy 46.3392; Globulin 2.8 g/dL (1.3-4.6); Glucose 110 mg/dL (65-115); Osmolality Calculated 292 mOsm/kg (285-295); Potassium 3.6 mmol/L (3.5-5.1); Sodium 139 mmol/L (136-145); Total Bilirubin 0.4 mg/dL (0.15-1.2); Total Protein 7.1 g/dL (6.6-8.7)
--- NOTE | 2024-06-19 16:54 | CTR_ITS ---
PROCEDURE INFORMATION: Exam: CTA Head With Contrast, Arteriography Exam date and time: 06/19/2024 5:09 PM Age: 83 years old Clinical indication: Cognitive deficit; Altered mental status; Additional info: Acute CVA TECHNIQUE: Imaging protocol: Computed tomographic angiography of the head with contrast. Exam focused on the arteries. 3D rendering (Not supervised by radiologist): MIP and/or 3D reconstructed images were created by the technologist. Radiation optimization: All CT scans at this facility use at least one of these dose optimization techniques: automated exposure control; mA and/or kV adjustment per patient size (includes targeted exams where dose is matched to clinical indication); or iterative reconstruction. Contrast material: OMNIPAQUE 350; Contrast volume: 100 ml; Contrast route: INTRAVENOUS (IV); COMPARISON: CT head thrombolytic [id number] 06/19/2024 4:12 PM RADIATION DOSE METRICS: Total DLP (mGy-cm): 1038.31 FINDINGS: Limitations: Motion artifact on exam which limits fine detailed evaluation of the intracranial vasculature. ANTERIOR CIRCULATION: Right internal carotid artery: Intracranial segment is patent with no significant stenosis. No aneurysm. Right middle cerebral artery: No occlusion or significant stenosis. No aneurysm. Right anterior cerebral artery: No occlusion or significant stenosis. No aneurysm. Left internal carotid artery: Intracranial segment is patent with no significant stenosis. No aneurysm. Left middle cerebral artery: No occlusion or significant stenosis. No aneurysm. Left anterior cerebral artery: No occlusion or significant stenosis. No aneurysm. POSTERIOR CIRCULATION: Right vertebral artery: No occlusion or significant stenosis. No aneurysm. Left vertebral artery: No occlusion or significant stenosis. No aneurysm. Basilar artery: No occlusion or significant stenosis. No aneurysm. Right posterior cerebral artery: No occlusion or significant stenosis. No aneurysm. Left posterior cerebral artery: No occlusion or significant stenosis. No aneurysm. Brain: No intracranial hemorrhage. No edema. Mild diffuse cerebral atrophy and sequela of chronic small vessel ischemic disease. No mass effect. Cerebral ventricles: No ventriculomegaly. Bones/joints: Unremarkable. No acute fracture. Soft tissues: Unremarkable. PROCEDURE INFORMATION: Exam: CTA Neck With Contrast Exam date and time: 06/19/2024 5:09 PM Age: 83 years old Clinical indication: Cognitive deficit; Altered mental status; Additional info: Acute CVA TECHNIQUE: Imaging protocol: Computed tomographic angiography of the neck with contrast. Exam focused on the cervical segments of the vasculature. 3D rendering (Not supervised by radiologist): MIP and/or 3D reconstructed images were created by the technologist. Radiation optimization: All CT scans at this facility use at least one of these dose optimization techniques: automated exposure control; mA and/or kV adjustment per patient size (includes targeted exams where dose is matched to clinical indication); or iterative reconstruction. Contrast material: OMNIPAQUE 350; Contrast volume: 100 ml; Contrast route: INTRAVENOUS (IV); COMPARISON: CT head thrombolytic [id number] 06/19/2024 4:12 PM RADIATION DOSE METRICS: Total DLP (mGy-cm): 1038.31 FINDINGS: Limitations: Motion artifact on exam which limits fine detailed evaluation of the vasculature of the neck. Right common carotid artery: No stenosis. No dissection or occlusion. Right internal carotid artery: Severe stenosis at the origin with an estimated 70% luminal narrowing. No dissection or occlusion. Right external carotid artery: No occlusion or stenosis of the origin. Left common carotid artery: No stenosis. No dissection or occlusion. Left internal carotid artery: Severe stenosis at the origin with an estimated 70% luminal narrowing. No dissection or occlusion. Left external carotid artery: No occlusion or stenosis of the origin. Right vertebral artery: No stenosis. No dissection or occlusion. Left vertebral artery: No stenosis. No dissection or occlusion. Thyroid: 7 mm nodule noted in the inferior aspect of the left thyroid lobe. Soft tissues: Normal. No significant soft tissue swelling. Bones/joints: No acute fracture. CT/CT angio headneck* [id number] IMPRESSION: Motion limited exam. No evidence of large vessel stenosis or occlusion. 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 No occlusion. COMMENTS: Consistent with the [employer]'s Incidental Findings Committee white paper (J Am Verna Radiol 2015): In patients aged 35 years and older with an incidental thyroid nodule equal to or greater than 1.[address], MRI or extrathyroidal US, further evaluation with dedicated thyroid US is recommended for patients with normal life expectancy and without comorbidities. For smaller nodules without suspicious features, no further evaluation or follow up is recommended. REFERENCES: NASCET CRITERIA. The degree of stenosis in the cervical segment of the internal carotid artery is based on NASCET criteria. Normal is no stenosis. Mild is less than 50% stenosis. Moderate is 50-69% stenosis. Severe is 70% to 99% stenosis. Total occlusion is no detectable patent lumen.
[2024-06-19] MEDS: iohexol 350 mg/mL 500 mL Btl (per mL) IV (17:15)
--- NOTE | 2024-06-19 17:40 | ED_ITS ---
HPI - Neuro Symptoms/Deficit 2 General: Chief Complaint: Neuro Symptoms/Deficit Stated Complaint: AMS Time Seen by Provider: 06/19/24 16:11 History of Present Illness: 83-year-old female presents emergency ro om with sudden onset of headache dizziness weakness and vomiting. Patient was at a family gathering left because she was not feeling well family noticed she did not seem to be tracking correctly she had difficult time driving as she laughed. This was at 330 this afternoon. They became concerned and went to her home and found her heart around 345 sitting in her car in the driveway she had vomited had visual loss weakness was very confused and disoriented. They brought her in by private vehicle she continued to vomit continue to canis complaint of severe dizziness along with headache. She has never had a headache in the past. She was also found to have a left hemianopsia. no previous history of stroke. Note that the patient's medical list includes Eliquis however we confirmed both in writing and in talking to the family that she has not been taking the Eliquis for several years. She had a written list of her most current medications that did not include Eliquis failure who occludes her granddaughter who is a nurse and she verified that she stopped taking this several years ago. She has not had any recent surgeries or traumas. No history of GI bleed. Associated symptoms: Deny chest pain Related Data Home Medications Medication Instructions Recorded Confirmed amlodipine 5 mg tablet 5 mg PO DAILY 09/02/19 01/25/22 aspirin 81 mg tablet,delayed 81 mg PO DAILY 09/02/19 01/25/22 release (Aspir-) bisoprolol fumarate 10 mg tablet 10 mg PO DAILY 09/02/19 01/25/22 citalopram 20 mg tablet 20 mg PO DAILY 09/02/19 01/25/22 cranberry 400 mg capsule 400 mg PO DAILY 09/02/19 01/25/22 indapamide 2.5 mg tablet 2.5 mg PO DAILY 09/02/19 01/25/22 olmesartan 20 mg tablet 20 mg PO DAILY 09/02/19 01/25/22 pravastatin 40 mg tablet 40 mg PO DAILY 09/02/19 01/25/22 Previous Rx's Medication Instructions Recorded tramadol 50 mg tablet 50 mg PO Q4H PRN Pain, Moderate 09/04/19 #40 tabs acetaminophen 325 mg tablet 650 mg (2 x 325 mg) PO Q6H PRN 09/08/19 Mild Pain #0 tabs apixaban 5 mg tablet (Eliquis) 2.5 mg (1/2 x 5 mg) PO BID #0 tabs 09/08/19 azithromycin 250 mg tablet See Rx Instructions PO .COMPLEX #6 01/25/22 tabs fexofenadine 180 mg tablet 180 mg PO DAILY #60 tabs 01/25/22 (Nazanin Allergy) fluticasone propionate 50 See Rx Instructions .Route 03/25/22 mcg/actuation nasal .COMPLEX #16 mL spray,suspension Allergies Allergy/AdvReac Type Severity Reaction Status Date / Time hydrocodone Allergy Severe ADR-Itching Verified 02/28/20 11:20 codeine Allergy ADR-Itching Verified 02/28/20 11:20 NSAIDS (Non-Steroidal Allergy ADR-Itching Verified 02/28/20 11:20 Anti-Inflamma Review of Systems 2 Const: Denies: fever(s) or chills Card: Denies: chest pain Resp: Denies: dyspnea GI: Denies: abdominal pain : Denies: dysuria, urinary frequency or urinary urgency Musc: Denies: neck pain or back pain Skin/Breast: Denies: rash PFSH ED 2 PFSH: Medical History (Updated 06/19/24 @ 17:47 by Corwin Howard DO) Heart attack Chronic UTI (urinary tract infection) History of cardioversion Allergic rhinitis due to allergen Diastolic heart failure Coronary artery disease Hypertension Surgical History (Updated 02/03/22 @ 11:29 by Rah Kate MD) History of suburethral sling procedure History of heart artery stent History of knee replacement bilateral History of heart artery stent Status post total right knee replacement Family History Denies family history of Diabetes CAD (coronary artery disease) Clotting disorder Dementia Hyperlipidemia Psychiatric illness Chronic kidney disease (CKD) Suicide Anesthesia complication Bleeding disorder Family history of premature coronary artery disease Lung disease Cancer Hypertension Stroke Social History Smoking and tobacco/nicotine status: never used tobacco/nicotine Alcohol intake: never Substance/Drug Use: never NIH stroke score 2 NIHSS: Level Of Consciousness - 1a: 0 Level Of Consciousness Questions - 1b: Both Correct Level Of Consciousness Commands - 1c: Both Correct Best Gaze - 2: Partial Gaze Palsy Visual Mckeon - 3: Complete Hemianopia Facial Palsy - 4: Normal Motor Arm Right - 5: No Drift Motor Arm Left - 5: No Drift Motor Leg Right - 6: No Drift Motor Leg Left - 6: No Drift Limb Ataxia - 7: Absent ([id number] while patient was in bed) S ensory - 8: Mild To Moderate Loss Best Language - 9: No Aphasia Dysarthia - 10: Normal Extinction And Inattention - 11: 1 Score: Total Score: 5 Physical Exam 2 Const: COMMON NORMALS: no acute distress GENERAL APPEARANCE: cooperative and comfortable ORIENTATION/CONSCIOUSNESS: Yes awake, Yes oriented to person, Yes oriented to place and Yes oriented to time HENMT: COMMON NORMALS: normocephalic, atraumatic and hearing grossly normal bilaterally HEAD & SCALP: normocephalic and atraumatic Resp: COMMON NORMALS: normal respiratory effort, No retractions, No use of accessory muscles and clear to auscultation bilaterally AUSCULTATION: clear to auscultation bilaterally Cardio: COMMON NORMALS: regular rate, regular rhythm and No murmurs present (Cardio) RATE: regular rate RHYTHM: regular rhythm GI: COMMON NORMALS: Soft to palpation and No hepatosplenomegaly present A USCULTATION: Yes normoactive bowel sounds PALPATION: Yes Soft to palpation, No Tenderness to palpation present (GI), No Guarding due to palpation present (GI) and Yes No hepatosplenomegaly present Extremity: COMMON NORMALS: normal to inspection, capillary refill normal, no clubbing, cyanosis or edema, no calf tenderness and no pedal edema Neuro: SENSORIUM/ORIENTATION: Yes oriented to person, Yes oriented to place and Yes oriented to time Skin: COMMON NORMALS: no rashes or lesions noted GENERAL SKIN EXAM: no rashes or lesions noted Course 2 Vital Signs: Vital signs: Vital Signs Pulse Rate 70 06/19/24 17:05 Respiratory Rate 18 06/19/24 17:05 Blood Pressure 182/69 06/19/24 17:05 Pulse Oximetry 95 06/19/24 17:05 Oxygen Delivery Me thod Room Air 06/19/24 16:24 MDM - Neuro Symptoms/Deficit Medical Decision Making Patient has acute posterior stroke. She did have a little bit of difficulty with extinction and inattention. She was not always sensing when I was touching her left foot. She did on a few occasions with a think was more driven by her sense of proprioception rather than touch. She has a pretty dense left-sided hemianopsia. She continues to be dizzy with nausea couple of episodes of vomiting. Her pressure has been stable. Discussed with the family she has been in a timeframe that would allow us to use thrombolytics she has a normal head CT without any signs of acute bleed. She would be expected to have significant benefit from teak TNKase. They wish to proceed discussed with Dr. Younger she agrees. Patient was treated will be admitted discussed with Dr. Hayes. Medical Records I reviewed the patient's medical records. Lab Data I reviewed the patient's lab results. 06/19/24 16:31 06/19/24 16:[address] 06/19/24 16:11 IMPRESSION: No acute intracranial abnormality. ASSESSMENT: ASPECTS ([place] Stroke Program Early CT Score) is 10. Laboratory Results WBC 8.56 10^3/uL (3.29-11.43) 06/19/24 16:31 RBC 4.62 10^6/uL (3.85-5.65) 06/19/24 16:31 Hgb 14.00 g/dL (11.27-16.99) 06/19/24 16:31 Hct 41.5 % (36-47) 06/19/24 16:31 MCV 89.8 fl (85-98) 06/19/24 16:31 MCH 30.3 pg (27-33) 06/19/24 16:31 MCHC 33.7 g/dL (30-55) 06/19/24 16:31 RDW 12.9 % (12.1-15.1) 06/19/24 16:31 Plt Count 318 10^3/cmm (157-399) 06/19/24 16:31 MPV 9.9 fL (7.4-10.4) 06/19/24 16:31 Neut % (Auto) 55.6 % 06/19/24 16: Lymph % (Auto) 31.2 % 06/19/24 16:31 [place] % (Auto) 9.7 % 06/19/24 16:31 Eos % (Auto) 2.5 % 06/19/24 16:31 Baso % (Auto) 0.6 % 06/19/24 16:31 Neut # (Auto) 4.77 10^3/uL (1.8-7.7) 06/19/24 16:31 Lymph # (Auto) 2.7 10^3/uL (0.8-4.8) 06/19/24 16:31 [place] # (Auto) 0.8 10^3/uL (0.2-0.9) 06/19/24 16:31 Eos # (Auto) 0.2 10^3/uL (0.0-0.8) 06/19/24 16:31 Baso # (Auto) 0.1 10^3/uL (0.0-0.1) 06/19/24 16:31 Nucleated RBC % (auto) 0 % 06/19/24 16:31 Nucleated RBCs # 0.0 /100WBC 06/19/24 16:31 PT 12.70 SECONDS (12.1-14.9) 06/19/24 16:31 INR 0.93 (0.8-1.2) 06/19/24 16:31 APTT 23.8 SECONDS (23.9-36.7) L 06/19/24 16:31 Sodium 139 mmol/L (136-145) 06/19/24 16:31 Potassium 3.6 mmol/L (3.5-5.1) 06/19/24 16:31 Chloride 100 mmol/L (98-107) 06/19/24 16:31 Carbon Dioxide 28 mmol/L (22-29) 06/19/24 16:31 Anion Gap 14.6 (5-19) 06/19/24 16:31 BUN 23 mg/dL (8-23) 06/19/24 16:31 Creatinine 1.0 mg/dL (0.5-0.9) H 06/19/24 16:31 GFR Calculation Not Reportable 06/19/24 16:31 Glucose 110 mg/dL (65-115) 06/19/24 16:31 Calculated Osmolality 292 mOsm/kg (285-295) 06/19/24 16:31 Calcium 9.0 mg/dL (8.5-10.5) 06/19/24 16:31 Total Bilirubin 0.4 mg/dL (0.15-1.2) 06/19/24 16:31 AST 12 U/L (0-32) 06/19/24 16:31 ALT 12 U/L (0-33) 06/19/24 16:31 Alkaline Phosphatase 72 U/L (35-105) 06/19/24 16:31 Total Protein 7.1 g/dL (6.6-8.7) 06/19/24 16:31 Albumin 4.3 g/dL (3.5-5.2) 06/19/24 16:31 Globulin 2.8 g/dL (1.3-4.6) 06/19/24 16:31 All radiology interpretation(s) finalized by discharge Discharge Plan Discharge Patient Disposition: Admitted As Inpatient Clinical Impression: Acute ischemic right posterior cerebral artery (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) stroke Condition: Stable Prescriptions: No Action azithromycin 250 mg tablet See Rx Instructions PO .COMPLEX Qty: 6 0RF Rx Instructions: For 250 mg dose pack: take 500 mg today (day 1), then 250 mg for 4 days (days 2-5) PO fexofenadine [Nazanin Allergy] 180 mg tablet 180 mg PO DAILY Qty: 60 1RF fluticasone propionate 50 mcg/actuation spray,suspension See Rx Instructions .ROUTE .COMPLEX Qty: 16 2RF Dose Instruction: USE 1 SPRAY IN EACH NOSTRIL TWICE DAILY Rx Instructions: USE 1 SPRAY IN EACH NOSTRIL TWICE DAILY acetaminophen 325 mg Tablet 650 mg PO Q6H PRN (Reason: Mild Pain) Qty: 0 0RF Eliquis 5 mg Tablet 2.5 mg PO BID Qty: 0 0RF indapamide 2.5 mg tablet 2.5 mg PO DAILY pravastatin 40 mg tablet 40 mg PO DAILY amlodipine 5 mg tablet 5 mg PO DAILY bisoprolol fumarate 10 mg tablet 10 mg PO DAILY citalopram 20 mg tablet 20 mg PO DAILY olmesartan 20 mg tablet 20 mg PO DAILY aspirin [Aspir-81] 81 mg Tablet,Delayed Release (Dr/Ec) 81 mg PO DAILY cranberry 400 mg Capsule 400 mg PO DAILY tramadol 50 mg Tablet 50 mg PO Q4H PRN (Reason: Pain, Moderate) Qty: 40 0RF Referrals: Van Rosas MD [Primary Care Provider] - Coding Level of Care Code ED Vending Machine Assembler for Luis Motley
[2024-06-19] MEDS: ondansetron 2 mg/ML SDV 2 mL 4 MG IVP (17:48)
--- NOTE | 2024-06-19 17:48 | PC.NURSE ---
I wasted 27 mg of TNKase. I gave this patient 23 mg of TNKase.
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
[2024-06-19] MEDS: sodium chloride 0.9% 1,000 ML 100 ML IV (19:55)
[2024-06-19] MEDS: pantoprazole 40 mg SDV IVP (20:19)
[2024-06-19 20:53] LABS: Bilirubin Urine Negative (Negative); Blood Urine Negative (Negative); Glucose Urine UA Negative (Normal); Ketones Urine Negative (Negative); Leukocyte Esterase Urine Negative (Negative); Nitrate Urine Positive (Negative); Protein Urine Negative (Negative); Urine Appearance Clear (CLEAR); Urine Color Yellow (Yellow)
[2024-06-19 21:02] LABS: Amphetamines Screen Urine Negative (Negative); Barbiturates Screen Urine Negative (Negative); Benzodiazepines Screen Urine Negative (Negative); Cocaine Screen Urine Negative (Negative); Opiate Screen Urine Negative (Negative); PCP Screen Urine Negative (Negative); THC Screen Urine Negative (Negative)
[2024-06-19 21:22] LABS: Add Urine Microscopic? YES; RBC Urine 0-4 /hpf (0-2)
[2024-06-19 21:23] LABS: Add Urine Culture? Yes; Bacteria Urine 2+ /hpf; Squamous Epithelial Cell Urine 0-4 /hpf (0-5); WBC Urine 0-4 /hpf (0-5)
[2024-06-20] VITALS (41 sets, daily range): BP systolic 91–172; BP diastolic 31–106; PULSE 57–73; RESP 13–22; TEMP 37.7–37.8; O2SAT 90–98
[2024-06-20] MEDS: acetaminophen 325 mg Tablet 650 MG PO ×3 (01:05→18:25)
[2024-06-20] MEDS: cefTRIAXone 1,000 mg SDV 1000 MG IVP (02:59)
[2024-06-20] MEDS: sodium chloride 0.9% 1,000 ML 100 ML IV (05:08)
--- NOTE | 2024-06-20 09:29 | CTR_ITS ---
PROCEDURE INFORMATION: Exam: CT Head Without Contrast Exam date and time: 06/20/2024 9:45 AM Age: 83 years old Clinical indication: Altered mental status/memory loss; Additional info: Increased confusion, post tnks/cva TECHNIQUE: Imaging protocol: Computed tomography of the head without contrast. Radiation optimization: All CT scans at this facility use at least one of these dose optimization techniques: automated exposure control; mA and/or kV adjustment per patient size (includes targeted exams where dose is matched to clinical indication); or iterative reconstruction. COMPARISON: CT angio headneck* [id number] 06/19/2024 5:09 PM RADIATION DOSE METRICS: Total DLP (mGy-cm): 1066.9 FINDINGS: Brain: Cortical subcortical hypodensity in the right posterior MCA territory involving the M6 segment, M3 segment and posterior aspect of the right insula. No mass effect. No hemorrhagic transformation. Cerebral ventricles: No ventriculomegaly. Pituitary gland and sella: Partially empty sella. Paranasal sinuses: Visualized sinuses are unremarkable. No fluid levels. Mastoid air cells: Visualized mastoid air cells are well aerated. Orbital cavities: Post bilateral cataract surgery. Bones: Unremarkable. No acute fracture. Soft tissues: Unremarkable. Vasculature: Hyperdense right MCA sign in the right sylvian fissure. CT/CT head wo con* [id number] IMPRESSION: Acute right MCA posterior branch infarct with no hemorrhagic transformation or mass effect. Aspect score of 7.
--- NOTE | 2024-06-20 11:16 | MRR_ITS ---
PROCEDURE INFORMATION: Exam: MR Head Without Contrast Exam date and time: 06/20/2024 1:11 PM Age: 83 years old Clinical indication: Altered mental status/memory loss; Confusion or disorientation; Additional info: Stroke TECHNIQUE: Imaging protocol: Magnetic resonance imaging of the head without contrast. COMPARISON: CT head wo con* [id number] 06/20/2024 9:45 AM FINDINGS: Brain: Redemonstrated the posterior right MCA acute infarct involving the posterior aspect of the insula, posterior aspect of the right temporal lobe and posterior aspect of the right parietal lobe with restricted diffusion and high FLAIR signal. Bilateral periventricular white matter foci of high FLAIR signal, consistent with chronic ischemic small vessel disease. No hemorrhagic transformation. Cerebral ventricles: Normal. No ventriculomegaly. Bones: Unremarkable. Paranasal sinuses: Normal as visualized. No acute sinusitis. Mastoid air cells: Normal as visualized. No mastoid effusion. Orbital cavities: Post bilateral cataract surgery. Soft tissues: Unremarkable. MR/MR head wo con* [id number] IMPRESSION: Redemonstrated the right MCA territory acute infarct, predominantly involving the posterior branch with no hemorrhagic transformation or mass effect.
--- NOTE | 2024-06-20 11:28 | PM.PN ---
Subjective Subjective: She has been mildly agitated as she is being Flat. There has been no change in her visual field cut. Vitals/I&O/Wt Last Vital Signs Temp 99.9 F H 06/20/24 11:00 Pulse 72 06/20/24 11:00 Resp 18 06/20/24 11:00 BP 159/67 06/20/24 11:00 Pulse Ox 94 06/20/24 11:00 O2 Del Method Nasal Cannula 06/20/24 11:00 O2 Flow Rate 2 06/20/24 11:00 06/19/24 06/20/24 06/20/24 22:59 06:59 14:59 Intake Total 0 / 0 921.667 / 921.667 0 / 0 Balance 0 / 0 921.667 / 921.667 0 / 0 Weight last 48 hrs Weight 207 lb 3.752 oz Weight 208 lb 14.4 oz Weight 201 lb Physical Exam Narrative: She was alert but mildly altered. Her daughter recognizes that she is not fully herself. She recognizes that she is in the hospital. Cranial nerves remarkable for dense left homonymous hemianopsia. Facial movements symmetric. She is not dysarthric. Motor exam reveals slight drift of the left arm. Sensory: She subjectively perceives touch as normal on the left side which is a definite improvement. She extinguishes to double simultaneous sensory stimulation. Graphesthesia absent on the left intact on the right. Gait: She was able to sit up at the bedside without falling. I did not feel comfortable to stand her up. Cardiac: S1 and S2 normal. Normal sinus rhythm. Urinary Catheter Management: Griffin: Cath Placed During This Visit: yes Reason for Continuing Indwelling Catheter: Accurate Measurement of Urinary Output in Critically Ill Patients Urinary Catheter Date of Insertion: 06/19/24 Urinary Catheter Time of Insertion: 19:10 Data 06/19/24 16:31 06/19/24 16:31 CT Head: My impression: CT head from today shows posterior branch right middle cerebral artery stroke. Radiologist's impression: Severe bilateral stenosis of the origins of the internal carotid arteries. No occlusion. A&P Assessment and plan (1) Acute right arterial ischemic stroke, middle cerebral artery (MCA): Her CT scan documents posterior branch right middle cerebral artery stroke rather than posterior cerebral artery. Her right carotid artery has 70% stenosis and so it would be prudent to consider right carotid endarterectomy within 2 weeks if she stabilizes. Right hemisphere stroke accompanied by confusion, improved hemisensory deficit and persistent hemineglect with dense left visual field cut. (2) Bilateral carotid artery stenosis: Her CT angiogram showed no intracranial occlusion but she has bilateral 70% stenosis of the carotid arteries at the origin. Her left internal carotid artery stenosis is asymptomatic but with symptomatic right carotid stenosis, preferable to proceed to stent or endarterectomy within 2 weeks. Attestations Medical Necessity Statement*: Acute posterior cerebral artery stroke with encephalopathy and dense Burak visual defect. Coding Level of Care Code Acute Code for [facility] Diagnoses Acute right arterial ischemic stroke, middle cerebral artery (MCA) I63.511 Bilateral carotid artery stenosis I65.23
--- NOTE | 2024-06-20 13:50 | ECG_ITS ---
[facility] Test Date: 2024-06-20 Pat Name: Dai Cavazos Department: Room: ICU07 Gender: Female Sampler First: : 1940 Requested By: Hilario Prado Order Number: [id number] Ganesh MD: Sherry Mina M.D. Measurements Intervals [place] Rate: 63 P: 83 OR: 198 QRS: -4 QRSD: 83 T: 30 QT: 414 QTc: 425 Interpretive Statements SINUS RHYTHM WITH OCCASIONAL SUPRAVENTRICULAR PREMATURE COMPLEXES NONSPECIFIC T-WAVE ABNORMALITY Compared to ECG 06/19/2024 16:52:13 T-wave abnormality now present Sinus arrhythmia no longer present Myocardial infarct finding no longer present Electronically Signed On 06-21-2024 00:01:10 CDT by Sherry Mina M.D. [email or web address]
--- NOTE | 2024-06-20 13:53 | XRR_ITS ---
PROCEDURE INFORMATION: Exam: XR Chest Exam date and time: 06/20/2024 3:00 PM Age: 83 years old Clinical indication: Other: Hypoxia TECHNIQUE: Imaging protocol: Radiologic exam of the chest. Views: 1 view. COMPARISON: CT angio chest PE protcl [id number] 09/06/2019 1:53 AM FINDINGS: Lungs: No focal consolidation Pleural spaces: Unremarkable. No pleural effusion. No pneumothorax. Heart/Mediastinum: Cardiomegaly. Vasculature: Unfolding of the thoracic aorta. Bones/joints: Unremarkable. XR/XR chest 1V portable [id number] IMPRESSION: No acute infiltrates.
[2024-06-20] MEDS: lanolin oint 7 gm 1 APPLIC TOPICAL (14:03)
[2024-06-20 14:31] LABS: Basophils % 0.5 %; Eosinophils # 0.1 10^3/uL (0.0-0.8); Lymphocytes # 1.3 10^3/uL (0.8-4.8); Lymphocytes % 16.5 %; Mean Corpuscular HGB Conc 33.2 g/dL (30-55); Mean Corpuscular Hemoglobin 31.1 pg (27-33); Mean Corpuscular Volume 93.4 fl (85-98); Mean Platelet Volume 10.3 fL (7.4-10.4); Monocytes # 0.6 10^3/uL (0.2-0.9); Monocytes % 7.6 %; Neutrophils # 5.85 10^3/uL (1.8-7.7); Neutrophils % 74.1 %; Nucleated Red Blood Cells % 0 %; Platelet Count 240 10^3/cmm (157-399); Red Blood Count 3.96 10^6/uL (3.85-5.65); Red Cell Distribution Width 12.9 % (12.1-15.1); White Blood Count 7.89 10^3/uL (3.29-11.43)
--- NOTE | 2024-06-20 14:41 | P.PN_ITS ---
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 status, PT OT, they voiced understanding, all Qs answered CT/CT head wo con* [id number] IMPRESSION: Acute right MCA posterior branch infarct with no hemorrhagic transformation or mass effect. Aspect score of 7. -Spoke to Fco BAEZ, no evidence of hemorrh agic transformation, ? Will continue to monitor closely in the ICU ? Spoke to Dr. Younger MRI brain MR/MR head wo con* [id number] IMPRESSION: Redemonstrated the right MCA territory acute infarct, predominantly involving the posterior branch with no hemorrhagic transformation or mass effect. Vitals/I&O/Wt Last Vital Signs Temp 99.9 F H 06/20/24 11:00 Pulse 68 06/20/24 12:30 Resp 18 06/20/24 12:30 BP 147/57 06/20/24 12:30 Pulse Ox 91 06/20/24 12:30 O2 Del Method Nasal Cannula 06/20/24 12:30 O2 Flow Rate 2 06/20/24 12:30 06/19/24 06/20/24 06/20/24 22:59 06:59 14:59 Intake Total 0 / 0 921.667 / 921.667 0 / 0 Balance 0 / 0 921.667 / 921.667 0 / 0 Weight last 48 hrs Weight 94 kg Weight 94.755 kg Weight 91.172 kg Physical Exam 2 Urinary Catheter Management: Griffin: Cath Placed During This Visit: yes Reason for Continuing Indwelling Catheter: Accurate Measurement of Urinary Output in Critically Ill Patients Urinary Catheter Date of Insertion: 06/19/24 Urinary Catheter Time of Insertion: 19:10 Data 06/20/24 14:07 06/19/24 16:31 A&P Assessment and plan (1) Acute ischemic right posterior cerebral artery (TIME SIGNAL WIRER) stroke: (2) Hypertension: (3) Coronary artery disease: (4) Urinary tract infection: (5) Stenosis of right carotid artery: Plan Acute posterior circulation CVA -Head CT FINDINGS: Brain: No hemorrhage. No edema. Moderate diffuse cerebral atrophy and mild sequela of chronic small vessel ischemic disease. Old lacunar infarct noted in the left basal ganglia. No mass effect. Cerebral ventricles: No ventriculomegaly. Paranasal sinuses: Visualized sinuses are unremarkable. No fluid levels. Mastoid air cells: Visualized mastoid air cells are well aerated. Bones: Unremarkable. No acute fracture. Soft tissues: Unremarkable. -CTA head and neck -FINDINGS: Limitations: Motion artifact on exam which limits fine detailed evaluation of the intracranial vasculature. ANTERIOR CIRCULATION: Right internal carotid artery: Intracranial segment is patent with no significant stenosis. No aneurysm. Right middle cerebral artery: No occlusion or significant stenosis. No aneurysm. Right anterior cerebral artery: No occlusion or significant stenosis. No aneurysm. Left internal carotid artery: Intracranial segment is patent with no significant stenosis. No aneurysm. Left middle cerebral artery: No occlusion or significant stenosis. No aneurysm. Left anterior cerebral artery: No occlusion or significant stenosis. No aneurysm. POSTERIOR CIRCULATION: Right vertebral artery: No occlusion or significant stenosis. No aneurysm. Left vertebral artery: No occlusion or significant stenosis. No aneurysm. Basilar artery: No occlusion or significant stenosis. No aneurysm. Right posterior cerebral artery: No occlusion or significant stenosis. No aneurysm. Left posterior cerebral artery: No occlusion or significant stenosis. No aneurysm. Brain: No intracranial hemorrhage. No edema. Mild diffuse cerebral atrophy and sequela of chronic small vessel ischemic disease. No mass effect. Cerebral ventricles: No ventriculomegaly. Bones/joints: Unremarkable. No acute fracture. Soft tissues: Unremarkable. PROCEDURE INFORMATION: Exam: CTA Neck With Contrast Exam date and time: 06/19/2024 5:09 PM Age: 83 years old Clinical indication: Cognitive deficit; Altered mental status; Additional info: Acute CVA TECHNIQUE: Imaging protocol: Computed tomographic angiography of the neck with contrast. Exam focused on the cervical segments of the vasculature. 3D rendering (Not supervised by radiologist): MIP and/or 3D reconstructed images were created by the technologist. Radiation optimization: All CT scans at this facility use at least one of these dose optimization techniques: automated exposure control; mA and/or kV adjustment per patient size (includes targeted exams where dose is matched to clinical indication); or iterative reconstruction. Contrast material: OMNIPAQUE 350; Contrast volume: 100 ml; Contrast route: INTRAVENOUS (IV); COMPARISON: CT head thrombolytic [id number] 06/19/2024 4:12 PM RADIATION DOSE METRICS: Total DLP (mGy-cm): 1038.31 FINDINGS: Limitations: Motion artifact on exam which limits fine detailed evaluation of the vasculature of the neck. Right common carotid artery: No stenosis. No dissection or occlusion. Right internal carotid artery: Severe stenosis at the origin with an estimated 70% luminal narrowing. No dissection or occlusion. Right external carotid artery: No occlusion or stenosis of the origin. Left common carotid artery: No stenosis. No dissection or occlusion. Left internal carotid artery: Severe stenosis at the origin with an estimated 70% luminal narrowing. No dissection or occlusion. Left external carotid artery: No occlusion or stenosis of the origin. Right vertebral artery: No stenosis. No dissection or occlusion. Left vertebral artery: No stenosis. No dissection or occlusion. Thyroid: 7 mm nodule noted in the inferior aspect of the left thyroid lobe. Soft tissues: Normal. No significant soft tissue swelling. Bones/joints: No acute fracture. CT/CT angio headneck* [id number] IMPRESSION: Motion limited exam. No evidence of large vessel stenosis or occlusion. 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 No occlusion. -NIH stroke scale on admission 8, status post TNKase repeat headt ct IMPRESSION: Acute right MCA posterior branch infarct with no hemorrhagic transformation or mass effect. Aspect score of 7. -Spoke to V RADS, no evidence of hemorrhagic transformation, MRI brain 06/20/2024 MR/MR head wo con* [id number] IMPRESSION: Redemonstrated the right MCA territory acute infarct, predominantly involving the posterior branch with no hemorrhagic transformation or mass effect. -On examination has left-sided homonymous hemianopsia, persistent hemineglect, does have confusion -Plan Monitor in ICU closely Monitor mentation, neurochecks, NIH stroke scale, aspiration precautions Nurse bedside dysphagia eval, speech therapy eval PT OT Treat if systolic blood pressure greater than 180 diastolic if greater than 105, labetalol with parameters as needed Telemetry monitoring Cardiac echo Monitor for risk for hemorrhagic transformation Lipid panel, A1c, CBC, CMP, troponin series As UTI continue Rocephin IV fluids Aspirin, statin, Plavix Will keep patient flat -Has right carotid artery stenosis 70% will have patient follow-up with vascular surgery as outpatient in 2 to 4 weeks for consideration of surgical invention speech therapy eval Lovenox for DVT prophylaxis Discussing CODE STATUS, patient stated that she is DNR/DNI, patient's family members were at bedside during this discussion As he is for DVT prophylaxis, will start Lovenox once head CT is completed 24 hours Patient requires hospitalization for acute CVA, spoke to patient, spoke to neurology, spoke to be speech therapy, spoke to patient, spoke to nursing staff Attestations 2 Medical Necessity Statement*: Patient requires hospitalization, for acute CVA, posterior circulation, UTI, right carotid artery stenosis Diagnoses Acute ischemic right posterior cerebral artery (TIME SIGNAL WIRER) stroke I63.531 Hypertension I10 Coronary artery disease I25.10 Urinary tract infection N39.0 Stenosis of right carotid artery I65.21
[2024-06-20 14:47] LABS: Fibrinogen 340 mg/dL (174-498)
[2024-06-20 14:50] LABS: Troponin(5th) Baseline 16 ng/L (0-10)
[2024-06-20 14:51] LABS: Alanine Aminotransferase 8 U/L (0-33); Albumin Level 3.5 g/dL (3.5-5.2); Alkaline Phosphatase 63 U/L (35-105); Blood Urea Nitrogen 10 mg/dL (8-23); Calcium 8.3 mg/dL (8.5-10.5); Carbon Dioxide 26 mmol/L (22-29); Chloride 100 mmol/L (98-107); Chol HDL Ratio 3.54 mg/dL (0.0-4.40); Cholesterol 145 mg/dL (0-200); Creatinine Clr Calc Pharmacy 58.9088; Globulin 2.4 g/dL (1.3-4.6); Glucose 121 mg/dL (65-115); HDL Cholesterol 41 mg/dL (60-100); LDL Cholesterol Calculated 81 mg/dL (50-129); LDL HDL Ratio 1.98 RATIO (0.00-3.22); Osmolality Calculated 280 mOsm/kg (285-295); Sodium 135 mmol/L (136-145); Total Bilirubin 0.5 mg/dL (0.15-1.2); Total Protein 5.9 g/dL (6.6-8.7); Triglycerides 117 mg/dL (0-150)
[2024-06-20 14:53] LABS: Anion Gap 12.6 (5-19); Aspartate Amino Transferase 14 U/L (0-32); Potassium 3.6 mmol/L (3.5-5.1)
[2024-06-20 15:01] LABS: Estmated Average Glucose 126
[2024-06-20 15:46] LABS: Covid PCR NEGATIVE (Negative); Influenza A NEGATIVE (Negative); Influenza B NEGATIVE (Negative); Respiratory Syncytial Virus Ce NEGATIVE (Negative)
[2024-06-20 16:35] LABS: Troponin 5 2HR 16.14 ng/L (0-10); Troponin 5 2HR Delta 0.14 ABS# (0-10)
--- NOTE | 2024-06-20 17:55 | USCV_ITS ---
Dai Cavazos Age: 83 Gender: F : 1940 Exam Date: 06/20/2024 06:59 Ordering Phys: Hilario Prado MD Technologist: Greg Phillips Exam Location: [facility] [place] Indication: cva BP: 138 / 65 HR: 64 Rhythm: Sinus Technical Quality: Adequate MEASUREMENTS (Male / Female) Normal Values 2D ECHO LV Diastolic Diameter PLAX 5.9 cm 4.2 - 5.9 / 3.9 - 5.3 cm IVS Diastolic Thickness 0.8 cm 0.6 - 1.0 / 0.6 - 0.9 cm IVS Systolic Thickness 1.6 cm LVPW Diastolic Thickness 1.5 cm 0.6 - 1.0 / 0.6 - 0.9 cm LVPW Systolic Thickness 1.9 cm LVOT Diameter 2.0 cm LV Ejection Fraction 2D Teich 80.3 % LV Ejection Fraction MOD 4C 64.4 % LV Ejection Fraction MOD 2C 61.9 % LV Ejection Fraction 2C AL 65.6 % LA Diameter 5.2 cm RA Systolic Volume 4C AL 24.5 ml RA Systolic Volume 4C MOD 25.7 ml LA Sys Volume AL 56.8 cm cubed LA Sys Volume Index AL 27.4 cm cubed/m squared Aorta at Sinotubular Diameter 2.3 cm IVC Diameter 1.4 cm M-MODE LA Ao Ratio MM 2.5 AV Cusp Separation MM 1.7 cm DOPPLER AV Peak Velocity 150.0 cm/s LVOT Peak Velocity 115.0 cm/s AV Area Cont Eq vti 2.4 cm squared AV Area Cont Eq pk 2.5 cm squared MV Peak Velocity 148.0 cm/s MV Area PHT 5.2 cm squared Mitral E to A Ratio 1.4 TV Peak Velocity 209.0 cm/s TR Peak Velocity 275.0 cm/s TR Peak Gradient 30.3 mmHg TR Mean Velocity 210.0 cm/s TR Mean Gradient 20.0 mmHg TR Velocity Time Integral 101.9 cm PV Peak Velocity 104.7 cm/s RV Ejection Time 0.3 s FINDINGS Left Ventricle Normal LV size and ejection fraction of 62%. Mild hypokinesia of the basal inferolateral wall segment.Grade III/IV diastolic dysfunction (restrictive filling pattern), severely elevated filling pressures. Right Ventricle Normal RV size and ejection fraction Right Atrium Possibly normal size Left Atrium Mildly increased left atrial size. Mitral Valve Trace to mild mitral valve regurgitation. Aortic Valve No gross abnormalities noted Tricuspid Valve Trace tricuspid valve regurgitation. Pulmonic Valve Pulmonic valve not well visualized. Pericardium Normal pericardium without effusion. Aorta Normal ascending aorta dimension. IVC Appears to be of normal size. CONCLUSIONS Normal LV size and ejection fraction of 62%. Mild hypokinesia of the basal inferolateral wall segment.Grade III/IV diastolic dysfunction (restrictive filling pattern), severely elevated filling pressures. Mildly increased left atrial size. Trace tricuspid valve regurgitation. Estimated pulmonary artery peak systolic pressure within normal limits Trace to mild mitral valve regurgitation. There is no pericardial effusion. There are no intracardiac masses Compared to the study from 09/06/2019, because of the differences in the technical quality, XR comparison is difficult. There may not be a significant change Dr Sherry Mina MD [facility] (Electronically Signed) Final Date: 20 June 2024 09:54 S
[2024-06-20] MEDS: clopidogrel 75 mg Tablet PO (18:25)
[2024-06-20] MEDS: atorvastatin 40 mg Tablet PO (18:25)
[2024-06-20] MEDS: aspirin 81 mg EC Tablet PO (18:25)
[2024-06-20] MEDS: fluticasone nasal spray 16gm Btl 2 SPRAY NASAL (18:28)
[2024-06-20 19:40] LABS: Troponin 5 6HR 14.81 ng/L (0-10)
[2024-06-20 19:41] LABS: Troponin 5 6HR Delta -1.19 ng/L (0-12)
[2024-06-20] MEDS: pantoprazole 40 mg SDV IVP (21:48)
[2024-06-20] MEDS: enoxaparin 40 mg/0.4 mL Syringe SUBCUT (21:49)
[2024-06-21] VITALS (25 sets, daily range): BP systolic 109–206; BP diastolic 48–91; PULSE 54–84; RESP 12–21; TEMP 36.6–37.1; O2SAT 89–99
[2024-06-21] MEDS: cefTRIAXone 1,000 mg SDV 1000 MG IVP (02:21)
[2024-06-21] MEDS: labetalol 5 mg/mL SDV 20mL 10 MG IVP (02:40)
[2024-06-21] MEDS: acetaminophen 325 mg Tablet 650 MG PO ×4 (03:07→21:24)
[2024-06-21 05:44] LABS: Basophils % 0.6 %; Eosinophils # 0.1 10^3/uL (0.0-0.8); Hematocrit 36.5 % (36-47); Lymphocytes # 1.5 10^3/uL (0.8-4.8); Lymphocytes % 21.8 %; Mean Corpuscular HGB Conc 32.9 g/dL (30-55); Mean Corpuscular Volume 91.3 fl (85-98); Mean Platelet Volume 10.2 fL (7.4-10.4); Monocytes # 0.8 10^3/uL (0.2-0.9); Monocytes % 10.8 %; Neutrophils # 4.54 10^3/uL (1.8-7.7); Neutrophils % 64.5 %; Nucleated Red Blood Cells % 0 %; Platelet Count 191 10^3/cmm (157-399); Red Cell Distribution Width 12.8 % (12.1-15.1); White Blood Count 7.03 10^3/uL (3.29-11.43)
[2024-06-21 06:04] LABS: Anion Gap 11.5 (5-19); Blood Urea Nitrogen 9 mg/dL (8-23); Calcium 8.5 mg/dL (8.5-10.5); Carbon Dioxide 28 mmol/L (22-29); Chloride 101 mmol/L (98-107); Creatinine Clr Calc Pharmacy 60.0881; Glucose 116 mg/dL (65-115); Osmolality Calculated 284 mOsm/kg (285-295); Potassium 3.5 mmol/L (3.5-5.1); Sodium 137 mmol/L (136-145)
--- NOTE | 2024-06-21 06:30 | PC.NURSE ---
Patient woke up coughing and then choking. Sat up in bed was at 35 % semi fowlers position prior. o2 on via nc at 2 L at time, increased to wide open. RT called. Nurses x 4 at bedside. Patient's o2 saturation dropped to high 50's before patient cough/stridor stopped spontaneously. Dr. Suh called updated on status bp 109/61 at time with HR 58. RR post 18, color improved o2 saturatiosn up to 100 percent. Patient without vomiting. Still with visual deficits and sensation deficits on left arm and leg. Alert to self, place and situation as previously in shift. Instructions to continue to monitor.
[2024-06-21] MEDS: citalopram 20 mg Tablet PO (08:28)
[2024-06-21] MEDS: fluticasone nasal spray 16gm Btl 2 SPRAY NASAL ×2 (08:28→17:48)
[2024-06-21] MEDS: lanolin oint 7 gm 1 APPLIC TOPICAL (08:28)
--- NOTE | 2024-06-21 08:50 | PC.PHAR ---
had to call pharmacy to verify, patient wasn't cooperative in getting the information
[2024-06-21 09:45] LABS: NT Pro B Type Natriuretic Pept 962 pg/mL (0-450)
--- NOTE | 2024-06-21 10:06 | PC.SOCIAL ---
IMM Update Pg. 2 of IMM updated. Copy provided at bedside.
--- NOTE | 2024-06-21 15:59 | P.PN_ITS ---
Subjective 2 Subjective: Patient was seen this morning, family members at bedside, she is alert to person, to place, not to time she follows commands denies any fevers, no chills, no cough, continues to have left-sided homonymous hemianopsia, no choking or coughing episodes, she can follow commands, has episodes of confusion family members at bedside noticed these episodes of confusion they report as outpatient she has reported to family numbers that she has become more forgetful recently Vitals/I&O/Wt Last Vital Signs Temp 98.8 F 06/21/24 07:00 Pulse 62 06/21/24 15:16 Resp 20 H 06/21/24 12:11 BP 161/64 06/21/24 11:00 Pulse Ox 94 06/21/24 12:11 O2 Del Method Room Air 06/21/24 12:11 O2 Flow Rate 4 06/21/24 10:00 06/21/24 06/21/24 06/21/24 06:59 14:59 22:59 Intake Total 100 / 1340 720 / 720 Output Total 600 / 1900 400 / 400 300 / 700 Balance -500 / -560 320 / 320 -300 / 20 Weight last 48 hrs Weight 97.386 kg Weight 94 kg Weight 94.755 kg Weight 91.172 kg Physical Exam 2 Const: COMMON NORMALS: no acute distress ORIENTATION/CONSCIOUSNESS: Yes awake, Yes oriented to person and Yes oriented to place Resp: COMMON NORMALS: normal respiratory effort, No retractions, No use of accessory muscles and clear to auscultation bilaterally AUSCULTATION: clear to auscultation bilaterally Cardio: COMMON NORMALS: regular rate, regular rhythm, S1 normal heart sound present and S2 normal heart sound present RATE: regular rate RHYTHM: r egular rhythm HEART SOUNDS: S1 normal heart sound present and S2 normal heart sound present GI: COMMON NORMALS: Normal to inspection, nondistended, normoactive bowel sounds present and non-tender Extremity: COMMON NORMALS: no pedal edema Neuro: COMMON NORMALS: CN's II-XII intact bilaterally, moves all extremities and no focal motor deficits SENSORIUM/ORIENTATION: Yes oriented to person and Yes oriented to place OTHER: Left-sided homonymous hemianopsia Psych: COMMON NORMALS: mental status grossly normal Urinary Catheter Management: Griffin: Cath Placed During This Visit: yes, but has since been removed by the nurse Reason for Continuing Indwelling Catheter: Decision to DC Catheter Urinary Catheter Date of Insertion: 06/19/24 Urinary Catheter Time of Insertion: 19:10 Date Urinary Catheter Removed: 06/21/24 Time Urinary Catheter Discontinued: 12:50 Data 06/21/24 05:14 06/21/24 05:14 Micro: Microbiology 06/19/24 19:17 Urine Culture - Preliminary Urine,Clean Catch Gram Negative Rods A&P Assessment and plan (1) Acute ischemic right posterior cerebral artery (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 No edema. Moderate diffuse cerebral atrophy and mild sequela of chronic small vessel ischemic disease. Old lacunar infarct noted in the left basal ganglia. No mass effect. Cerebral ventricles: No ventriculomegaly. Paranasal sinuses: Visualized sinuses are unremarkable. No fluid levels. Mastoid air cells: Visualized mastoid air cells are well aerated. Bones: Unremarkable. No acute fracture. Soft tissues: Unremarkable. -CTA head and neck -FINDINGS: Limitations: Motion artifact on exam which limits fine detailed evaluation of the intracranial vasculature. ANTERIOR CIRCULATION: Right internal carotid artery: Intracranial segment is patent with no significant stenosis. No aneurysm. Right middle cerebral artery: No occlusion or significant stenosis. No aneurysm. Right anterior cerebral artery: No occlusion or significant stenosis. No aneurysm. Left internal carotid artery: Intracranial segment is patent with no significant stenosis. No aneurysm. Left middle cerebral artery: No occlusion or significant stenosis. No aneurysm. Left anterior cerebral artery: No occlusion or significant stenosis. No aneurysm. POSTERIOR CIRCULATION: Right vertebral artery: No occlusion or significant stenosis. No aneurysm. Left vertebral artery: No occlusion or significant stenosis. No aneurysm. Basilar artery: No occlusion or significant stenosis. No aneurysm. Right posterior cerebral artery: No occlusion or significant stenosis. No aneurysm. Left posterior cerebral artery: No occlusion or significant stenosis. No aneurysm. Brain: No intracranial hemorrhage. No edema. Mild diffuse cerebral atrophy and sequela of chronic small vessel ischemic disease. No mass effect. Cerebral ventricles: No ventriculomegaly. Bones/joints: Unremarkable. No acute fracture. Soft tissues: Unremarkable. PROCEDURE INFORMATION: Exam: CTA Neck With Contrast Exam date and time: 06/19/2024 5:09 PM Age: 83 years old Clinical indication: Cognitive deficit; Altered mental status; Additional info: Acute CVA TECHNIQUE: Imaging protocol: Computed tomographic angiography of the neck with contrast. Exam focused on the cervical segments of the vasculature. 3D rendering (Not supervised by radiologist): MIP and/or 3D reconstructed images were created by the technologist. Radiation optimization: All CT scans at this facility use at least one of these dose optimization techniques: automated exposure control; mA and/or kV adjustment per patient size (includes targeted exams where dose is matched to clinical indication); or iterative reconstruction. Contrast material: OMNIPAQUE 350; Contrast volume: 100 ml; Contrast route: INTRAVENOUS (IV); COMPARISON: CT head thrombolytic [id number] 06/19/2024 4:12 PM RADIATION DOSE METRICS: Total DLP (mGy-cm): 1038.31 FINDINGS: Limitations: Motion artifact on exam which limits fine detailed evaluation of the vasculature of the neck. Right common carotid artery: No stenosis. No dissection or occlusion. Right internal carotid artery: Severe stenosis at the origin with an estimated 70% luminal narrowing. No dissection or occlusion. Right external carotid artery: No occlusion or stenosis of the origin. Left common carotid artery: No stenosis. No dissection or occlusion. Left internal carotid artery: Severe stenosis at the origin with an estimated 70% luminal narrowing. No dissection or occlusion. Left external carotid artery: No occlusion or stenosis of the origin. Right vertebral artery: No stenosis. No dissection or occlusion. Left vertebral artery: No stenosis. No dissection or occlusion. Thyroid: 7 mm nodule noted in the inferior aspect of the left thyroid lobe. Soft tissues: Normal. No significant soft tissue swelling. Bones/joints: No acute fracture. CT/CT angio headneck* [id number] IMPRESSION: Motion limited exam. No evidence of large vessel stenosis or occlusion. 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 No occlusion. -NIH stroke scale on admission 8, status post TNKase repeat headt ct IMPRESSION: Acute right MCA posterior branch infarct with no hemorrhagic transformation or mass effect. Aspect score of 7. -Spoke to V RADS, no evidence of hemorrhagic transformation, MRI brain 06/20/2024 MR/MR head wo con* [id number] IMPRESSION: Redemonstrated the right MCA territory acute infarct, predominantly involving the posterior branch with no hemorrhagic transformation or mass effect. head MRI MR/MR head wo con* [id number] IMPRESSION: Redemonstrated the right MCA territory acute infarct, predominantly involving the posterior branch with no hemorrhagic transformation or mass effect. -On examination has left-sided homonymous hemianopsia, persistent hemineglect, does have confusion -Plan Moved to medical floors Monitor mentation, neurochecks, NIH stroke scale, aspiration precautions Nurse bedside dysphagia eval, speech therapy eval PT OT Treat if systolic blood pressure greater than 180 diastolic if greater than 105, labetalol with parameters as needed Telemetry monitoring Cardiac echo CONCLUSIONS Normal LV size and ejection fraction of 62%. Mild hypokinesia of the basal inferolateral wall segment.Grade III/IV diastolic dysfunction (restrictive filling pattern), severely elevated filling pressures. Mildly increased left atrial size. Trace tricuspid valve regurgitation. Estimated pulmonary artery peak systolic pressure within normal limits Trace to mild mitral valve regurgitation. There is no pericardial effusion. There are no intracardiac masses Compared to the study from 09/06/2019, because of the differences in the technical quality, XR comparison is difficult. There may not be a significant change Monitor for risk for hemorrhagic transformation As UTI continue Rocephin Aspirin, statin, Plavix Will keep patient flat -Has right carotid artery stenosis 70% will have patient follow-up with vascular surgery as outpatient in 2 to 4 weeks for consideration of surgical invention speech therapy eval Lovenox for DVT prophylaxis Discussing CODE STATUS, patient stated that she is DNR/DNI, patient's family members were at bedside during this discussion As he is for DVT prophylaxis, Lovenox Spoke to patient, spoke to nursing staff, spoke to patient's daughter Attestations 2 Medical Necessity Statement*: Patient requires hospitalization for acute posterior circulation stroke, with UTI with persistent confusion Diagnoses Acute ischemic right posterior cerebral artery (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
[2024-06-21] MEDS: clopidogrel 75 mg Tablet PO (17:48)
[2024-06-21] MEDS: atorvastatin 40 mg Tablet PO (17:48)
[2024-06-21] MEDS: aspirin 81 mg EC Tablet PO (17:48)
[2024-06-21] MEDS: enoxaparin 40 mg/0.4 mL Syringe SUBCUT (21:25)
[2024-06-21] MEDS: pantoprazole 40 mg SDV IVP (21:25)
[2024-06-22] VITALS: BP 182/78; PULSE 65; RESP 17; TEMP 37.1; O2SAT 94
[2024-06-22] MEDS: cefTRIAXone 1,000 mg SDV 1000 MG IVP (01:58)
[2024-06-22 04:00] VITALS: BP 169/73; PULSE 68; RESP 15; TEMP 36.7; O2SAT 90
[2024-06-22 05:44] LABS: Basophils % 0.7 %; Eosinophils # 0.1 10^3/uL (0.0-0.8); Eosinophils % 2.3 %; Hematocrit 37.4 % (36-47); Lymphocytes # 1.6 10^3/uL (0.8-4.8); Lymphocytes % 25.3 %; Mean Corpuscular HGB Conc 33.7 g/dL (30-55); Mean Corpuscular Hemoglobin 30.6 pg (27-33); Mean Corpuscular Volume 90.8 fl (85-98); Monocytes # 0.7 10^3/uL (0.2-0.9); Monocytes % 11.6 %; Neutrophils # 3.67 10^3/uL (1.8-7.7); Neutrophils % 59.9 %; Nucleated Red Blood Cells % 0 %; Platelet Count 241 10^3/cmm (157-399); Red Blood Count 4.12 10^6/uL (3.85-5.65); Red Cell Distribution Width 12.9 % (12.1-15.1); White Blood Count 6.12 10^3/uL (3.29-11.43)
[2024-06-22 06:00] VITALS: PULSE 64
[2024-06-22 06:10] LABS: Blood Urea Nitrogen 10 mg/dL (8-23); Calcium 8.6 mg/dL (8.5-10.5); Carbon Dioxide 28 mmol/L (22-29); Chloride 100 mmol/L (98-107); Creatinine Clr Calc Pharmacy 59.0931; Glucose 116 mg/dL (65-115); Osmolality Calculated 288 mOsm/kg (285-295); Sodium 139 mmol/L (136-145)
[2024-06-22 06:13] LABS: Anion Gap 14.4 (5-19); Potassium 3.4 mmol/L (3.5-5.1)
[2024-06-22] MEDS: fluticasone nasal spray 16gm Btl 2 SPRAY NASAL (07:59)
[2024-06-22] MEDS: citalopram 20 mg Tablet PO (07:59)
[2024-06-22 08:10] VITALS: BP 126/78; PULSE 64; RESP 16; TEMP 37; O2SAT 97
[2024-06-22] MEDS: potassium chloride ER 20 mEq Tablet 40 MEQ PO (09:42)
[2024-06-22] MEDS: acetaminophen 325 mg Tablet 650 MG PO (11:01)
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
[2024-06-22 11:49] VITALS: BP 157/87; PULSE 69; RESP 18; TEMP 36.8; O2SAT 94
== END 2024-06-22 14:15 | disposition home health service (06) | DRG 61 ==
LOC: ER 17:47 → ICU 18:05 → MEDSURG 06-21 19:40
PROVIDERS: Emergency Medicine; Admitting Provider Family Medicine; Emergency Provider Family Medicine; PCP Family Medicine; Visit Provider Family Medicine
DX: I63.511 Cerebral infarction due to unspecified occlusion or stenosis of right middle cerebral artery (principal); G92.8 Other toxic encephalopathy; I50.32 Chronic diastolic (congestive) heart failure; N39.0 Urinary tract infection, site not specified; H53.462 Homonymous bilateral field defects, left side; R29.708 NIHSS score 8; Z79.82 Long term (current) use of aspirin; I25.2 Old myocardial infarction; I11.0 Hypertensive heart disease with heart failure; I25.10 Atherosclerotic heart disease of native coronary artery without angina pectoris; Z95.5 Presence of coronary angioplasty implant and graft; Z96.653 Presence of artificial knee joint, bilateral; I65.23 Occlusion and stenosis of bilateral carotid arteries; Z66 Do not resuscitate; Z11.52 Encounter for screening for COVID-19
CPT/HCPCS: 0241U; 36415; 51702; 70450; 70496; 70498; 70551; 71045; 80048; 80053; 80061; 80306; 81001; 83036; 83880; 84484; 85025; 85384; 85610; 85730; 87077; 87086; 87186; 92523; 92610; 93005; 93306; 94664; 96372; 96374; 96376; 97116; 97161; 97166; 97530; 99291; J0696; J1650; J2405; J2470; J3101; J3490; J7030

== ENCOUNTER → 2024-07-15 10:45 | Outpatient (BNVA) | payer MEDICARE, OTHER, SELFPAY | PROVIDERS: PCP Family Medicine; Visit Provider Internal Medicine Cardiovascular Disease | DX: I25.118 Atherosclerotic heart disease of native coronary artery with other forms of angina pectoris (principal); R94.31 Abnormal electrocardiogram [ECG] [EKG]; I48.0 Paroxysmal atrial fibrillation; I65.23 Occlusion and stenosis of bilateral carotid arteries; E78.5 Hyperlipidemia, unspecified; Z86.73 Personal history of transient ischemic attack (TIA), and cerebral infarction without residual deficits; I11.0 Hypertensive heart disease with heart failure; I50.30 Unspecified diastolic (congestive) heart failure; Z79.01 Long term (current) use of anticoagulants | CPT/HCPCS: 99205 ==

== ENCOUNTER 2024-07-27 09:41 | Outpatient (CLI) | payer MEDICARE, OTHER, SELFPAY ==
--- NOTE | 2024-07-27 | ECG_ITS ---
[facility] Test Date: 2024-07-27 Pat Name: Dai Cavazos Department: Room: Gender: Female [employer] Helper: : 1940 Requested By: Sherry Mina Order Number: [id number] Ganesh MD: Sherry Mina M.D. Interpretive Statements Lung unchanged pre/post procedure; Intraprocedure shortess of breath; Symptoms resoled by discharge PROCEDURE: At the baseline, the EKG revealed sinus rhythm with poor R wave progression. Diffuse nonspecific T wave changes.. The baseline heart was 78 bpm with a blood pressue of 172/63 mm of Hg Lexiscan was infused over a period of 20 seconds. A total of 0.4 milligrams of Lexiscan was infused. The stress phase was continued for a total of 5 minutes. Heart rate at the end of the stress phase was 84 bpm with a blood pressure 159/54 mm of Hg. The EKG at the peak infusion revealed no significant changes. Occasional PVCs were noted on the monitor. Sestamibi was injected 20 seconds after the Lexiscan infusion. Heart rate at the end of the recovery phase was 79 bpm with a blood pressure of 165/59 mm of Hg. CONCLUSION: 1. No significant EKG changes with the LexiScan infusion 2. No LexiScan induced chest pain or cardiac arrhythmia 3. Normal blood pressure and heart rate response 4. Sestamibi/sestamibi perfusion scan pending; see separate report. Electronically Signed On 07-28-2024 19:49:57 SERVICE COORDINATOR by Sherry Mina M.D. [email or web address]
[2024-07-27 09:58] VITALS: BMI 30.2
--- NOTE | 2024-07-27 10:02 | NMCV_ITS ---
NM gavin perf SPECT r/s* [id number] Dai Cavazos Age: 83 Gender: F : 1940 Exam Date: 07/27/2024 10:02 Ordering Phys: Sherry Mina MD ([email or web address]) Technologist: CAR Woo Exam Location: [facility] Indications: CP STRESS TEST Please see separate stress test report in [facility] for full findings IMAGE PROTOCOL Rest/Stress 1 Lexiscan Day Radiopharmaceutical Dose (mCi) Administration Site Administered by Rest: Tc-99m 11 IV Natividad Levin OYSTER GROWER Stress:Tc-99m 33 IV Natividad Levin OYSTER GROWER Rest: 07/27/2024 60 Discovery 630 Stress: 07/27/2024 30 Discovery 630 0.4mg Lexiscan. Supine position only as patient was unable to lay prone. SPECT RESULTS Technical Quality: Good Raw Data Analysis: Normal Image Corrections: No attenuation or motion correction applied Summed Stress Score: 0 Summed Rest Score: 0 Summed Difference Score: 0 PERFUSION FINDINGS Fairly uniform myocardial tracer uptake with no significant perfusion abnormalities. FUNCTIONAL RESULTS (calculated via Gated SPECT) Stress Image LV EF (%): 83 Stress EDV (mL):54 TID: 1.39 Stress ESV (mL):9 FUNCTIONAL FINDINGS: Segmental wall motion analysis revealing no gross wall motion abnormalities Elevated transient ischemic dilatation ratio of 1.39 IMPRESSIONS 1. Myocardial perfusion imaging revealing uniform myocardial tracer uptake with no significant Perfusion abnormalities 2. Normal LV ejection fraction of 83% 3. Elevated transient ischemic dilatation ratio 1.39, appears to be inconsistent with the prone imaging 4. LV wall motion analysis revealing no gross wall motion abnormalities. 5. Normal LV volume No similar previous studies are available for comparison Possibly no significant ischemia based on the above findings. However clinical correlation is recommended Dr Sherry Mina MD FACC (Electronically Signed) Final Date: 27 July 2024 20:34 S
[2024-07-27] MEDS: regadenoson 0.4 Mg/5 ml Syringe IVP (11:37)
[2024-07-27] MEDS: aminophylline 25 mg/mL SDV 20 mL IVP (11:46)
[2024-07-27 11:52] VITALS: BP 165/59; PULSE 81
== END 2024-07-27 09:42 | disposition home or self-care (01) ==
PROVIDERS: PCP Family Medicine; Visit Provider Internal Medicine Cardiovascular Disease
DX: Z98.61 Coronary angioplasty status (principal); R06.02 Shortness of breath
CPT/HCPCS: 36415; 78452; 93017; 96374; A9500; J0280; J2785

== ENCOUNTER → 2024-07-29 15:00 | Outpatient (BNVA) | payer MEDICARE, OTHER, SELFPAY | PROVIDERS: PCP Family Medicine; Referring Provider Family Medicine; Visit Provider Specialist | DX: I63.511 Cerebral infarction due to unspecified occlusion or stenosis of right middle cerebral artery (principal); G30.9 Alzheimer's disease, unspecified; F02.80 Dementia in other diseases classified elsewhere, unspecified severity, without behavioral disturbance, psychotic disturbance, mood disturbance, and anxiety; I48.0 Paroxysmal atrial fibrillation; I65.21 Occlusion and stenosis of right carotid artery; I65.22 Occlusion and stenosis of left carotid artery; R44.3 Hallucinations, unspecified | CPT/HCPCS: 96116; 99205 ==

== ENCOUNTER → 2024-10-18 10:30 | Outpatient (BNVA) | payer MEDICARE, OTHER, SELFPAY | PROVIDERS: PCP Family Medicine; Visit Provider Nurse Practitioner Family | DX: I11.0 Hypertensive heart disease with heart failure (principal); I50.33 Acute on chronic diastolic (congestive) heart failure; I25.10 Atherosclerotic heart disease of native coronary artery without angina pectoris; Z95.828 Presence of other vascular implants and grafts; I48.0 Paroxysmal atrial fibrillation; Z79.01 Long term (current) use of anticoagulants; Z86.73 Personal history of transient ischemic attack (TIA), and cerebral infarction without residual deficits | CPT/HCPCS: 99214 ==

== ENCOUNTER → 2024-10-19 14:48 | Outpatient (BNVA) | payer MEDICARE, OTHER, SELFPAY | PROVIDERS: PCP Family Medicine; Visit Provider Specialist | DX: I63.511 Cerebral infarction due to unspecified occlusion or stenosis of right middle cerebral artery (principal); G30.9 Alzheimer's disease, unspecified; F02.80 Dementia in other diseases classified elsewhere, unspecified severity, without behavioral disturbance, psychotic disturbance, mood disturbance, and anxiety; I48.0 Paroxysmal atrial fibrillation; I65.21 Occlusion and stenosis of right carotid artery; I65.22 Occlusion and stenosis of left carotid artery | CPT/HCPCS: G0463 ==

== ENCOUNTER 2025-01-24 14:01 | Emergency (ER) | payer MEDICARE, OTHER, SELFPAY ==
--- NOTE | 2025-01-24 14:06 | W.ED.BACK ---
HPI - Back Pain/Injury General: Chief Complaint: Back Pain/Injury Stated Complaint: low back pain Time Seen by Provider: 01/24/25 14:02 Source: patient Mode of arrival: ambulatory Limitations: no limitations History of Present Illness: Patient is a 84-year-old female presents to ED today along with family for evaluation of back pain. Patient have a longstanding history of back pain. She was receiving chiropractor care but did take a break for a while following her strokes. Patient states she saw her primary care provider recently and asked about getting back into [employer] which he was agreeable to. She states she has had 2 chiropractor manipulations over the past 2 weeks or so but this has failed to help with her back pain. She is complaining of pain to her upper lumbar region. Pain seems to be worse with certain positions and movement as well as things like car rides/ATV rides. She states she can occasionally get in a certain position with lying down on her side that seems to help with her discomfort. She does state on Friday she was diagnosed with a UTI at [facility] and placed on Macrobid. Patient is not complaining of dysuria. She has some degree of chronic urinary frequency and nighttime urination. She is not complaining of any radicular pains into her buttock or lower extremities. She is not having any chest or abdominal pain. At time of my examination, patient is lying flat and reports her pain is minimal. MD elicited complaint: back pain Pertinent past history: prior back pain Onset (ago): week(s) Timing: constant Severity: moderate Similar Symptoms Previously: Yes Location: lumbar spine and thoracic spine Radiation: none Exacerbating factors: movement Relieving factors: other (lying down in certain positions) Associated symptoms: Deny abdominal pain, chills, difficulty walking, dysuria, fatigue, fever(s), nausea, urinary urgency or vomiting Work related injury: No Related Data Home Medications ?Medication ?Instructions ?Recorded ?Confirmed citalopram 20 mg tablet 20 mg PO DAILY 09/02/19 10/19/24 famotidine 20 mg tablet 20 mg PO BID 06/21/24 10/19/24 montelukast 10 mg tablet 10 mg PO DAILY 06/21/24 10/19/24 clopidogrel 75 mg tablet 75 mg PO DAILY 07/15/24 10/19/24 amlodipine 5 mg tablet 5 mg PO BID 07/29/24 10/19/24 cranberry fruit concentrate 250 mg 250 mg PO DAILY 07/29/24 10/19/24 chewable tablet (Azo Cranberry) mv-mn-folic 200 mcg-vit K 15 cap PO 07/29/24 10/19/24 mcg-lutein 5 mg-zeaxanthin 1 mg capsule (PreserVision AREDS 2 Plus Multivit) oxybutynin chloride 5 mg 5 mg PO DAILY 07/29/24 10/19/24 tablet,extended release 24 hr pantoprazole 40 mg granules 40 mg PO DAILY 10/19/24 10/19/24 delayed-release for susp in packet Previous Rx's ?Medication ?Instructions ?Recorded acetaminophen 325 mg tablet 650 mg (2 x 325 mg) PO Q6H PRN 09/08/19 Mild Pain #0 tabs fexofenadine 180 mg tablet 180 mg PO DAILY #60 tabs 01/25/22 (Nazanin Allergy) fluticasone propionate 50 See Rx Instructions .Route 03/25/22 mcg/actuation nasal .COMPLEX #16 mL spray,suspension pravastatin 80 mg tablet 80 mg PO DAILY 30 days #30 tabs 06/22/24 apixaban 5 mg tablet (Eliquis) 5 mg PO BID #180 tabs 06/25/24 galantamine 4 mg tablet See Rx Instructions .Route 11/10/24 .COMPLEX #180 tabs cyclobenzaprine 10 mg tablet 10 mg PO TID #14 tabs 01/24/25 methylprednisolone 4 mg tablets in See Rx Instructions PO .COMPLEX 01/24/25 a dose pack (Medrol (Maximino)) #21 ea Allergies Allergy/AdvReac Type Severity Reaction Status Date / Time hydrocodone Allergy Severe ADR-Itching Verified 10/19/24 14:55 codeine Allergy ADR-Itching Verified 10/19/24 14:55 NSAIDS (Non-Steroidal Allergy ADR-Itching Verified 10/19/24 14:55 Anti-Inflamma Review of Systems Const: Denies: fever(s), chills, body aches, fatigue or malaise Card: Denies: chest pain Resp: Denies: dyspnea GI: Denies: abdominal pain, nausea, vomiting or diarrhea : Reports: urinary frequency (chronic) and nocturia (chronic); Denies: flank pain, difficulty voiding, dysuria, urinary urgency or urinary hesitancy Musc: Reports: back pain; Denies: neck pain, extremity pain, extremity swelling, joint pain, joint swelling or joint redness Skin/Breast: Denies: rash Neuro: Denies: headache(s), numbness in extremities, weakness in extremities, sensory changes, difficulty walking or dizziness [facility] ED PFSH: Medical History Heart attack Chronic UTI (urinary tract infection) History of cardioversion Allergic rhinitis due to allergen Diastolic heart failure Coronary artery disease Hypertension Surgical History History of suburethral sling procedure History of heart artery stent History of knee replacement bilateral History of heart artery stent Status post total right knee replacement Family History Denies family history of Diabetes CAD (coronary artery disease) Clotting disorder Dementia Hyperlipidemia Psychiatric illness Chronic kidney disease (CKD) Suicide Anesthesia complication Bleeding disorder Family history of premature coronary artery disease Lung disease Cancer Hypertension Stroke Social History Smoking and tobacco/nicotine status: never used tobacco/nicotine Alcohol intake: never Substance/Drug Use: never Physical Exam Const: COMMON NORMALS: no acute distress, average body habitus, patient oriented x3, no limitations, healthy appearing, alert and well nourished GENERAL APPEARANCE: cooperative ORIENTATION/CONSCIOUSNESS: Yes awake, Yes oriented to person, Yes oriented to place and Yes oriented to time HENMT: COMMON NORMALS: normocephalic and atraumatic HEAD & SCALP: normal to inspection, normocephalic and atraumatic Eye: GENERAL EYE: appearance normal, both eyes and all related structures Neck/C-Spine: COMMON NORMALS: full ROM and no meningeal signs Resp: COMMON NORMALS: normal respiratory effort and clear to auscultation bilaterally AUSCULTATION: clear to auscultation bilaterally Cardio: COMMON NORMALS: regular rate and regular rhythm RATE: regular rate RHYTHM: regular rhythm GI: COMMON NORMALS: Normal to inspection, nondistended, normoactive bowel sounds present, Soft to palpation, non-tender, No hepatosplenomegaly present and no masses PALPATION: Yes Soft to palpation and Yes No hepatosplenomegaly present : COMMON NORMALS: Yes no CVA tenderness BLADDER/KIDNEY EXAM: Yes no CVA tenderness Back/Pelvis: COMMON NORMALS: no CVA tenderness and straight leg raise negative bilaterally LUMBAR SPINE/LOWER BACK: Yes paraspinal muscle tenderness, No mass present and Yes straight leg raise negative bilaterally PELVIS: Yes buttocks normal and No sciatic notch tenderness SACROILIAC JOINTS: Yes SI joints normal SACRUM: no tenderness COCCYX: no tenderness Extremity: COMMON NORMALS: normal to inspection, full ROM, capillary refill normal, no joint enlargement, no clubbing, cyanosis or edema, no calf tenderness and no pedal edema GENERAL: Yes normal exam except as noted Neuro: COMMON NORMALS: patient oriented x3, moves all extremities, no focal motor deficits, no sensory deficits noted and gait normal SENSORIUM/ORIENTATION: Yes alert, Yes oriented to person, Yes oriented to place and Yes oriented to time MENINGEAL SIGNS: Yes no meningeal signs Skin: COMMON NORMALS: no rashes or lesions noted GENERAL SKIN EXAM: no rashes or lesions noted Course Vital Signs: Vital signs: Vital Signs Temperature 98.6 F 01/24/25 14:08 Pulse Rate 84 01/24/25 15:30 Respiratory Rate 18 01/24/25 14:08 Blood Pressure 164/77 01/24/25 15:30 Pulse Oximetry 98 01/24/25 15:30 Oxygen Delivery Me thod Room Air 01/24/25 15:30 MDM - Back Pain/Injury Medical Decision Making Patient feels better after medications given here. UA does not look overly suspicious for infection. We did attempt to get records from [facility] regarding her urine analysis/culture but could not get records faxed. Recommend she follow-up with Dr. Rosas this week or next for re-evaluation. XR of her lumbar spine showing degenerative changes. No red flags on history or physical examination. Return to ED precautions discussed. Medical Records I reviewed the patient's medical records. Labs Radiology Impressions Lumbar Spine X-Ray 01/24/25 14:23 IMPRESSION: No acute abnormality. 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 Laboratory Results Urine Color Yellow (Yellow) 01/24/25 14:30 Urine Appearance Clear (CLEAR) 01/24/25 14:30 Urine pH 6.0 (5-7) 01/24/25 14:30 Ur Specific Bayard 1.017 (1.005-1.030) 01/24/25 14:30 Urine Protein 1+ (Negative) A 01/24/25 14:30 Urine Glucose (UA) Negative (Normal) 01/24/25 14:30 Urine Ketones Trace (Negative) 01/24/25 14:30 Urine Blood Negative (Negative) 01/24/25 14:30 Urine Nitrate Negative (Negative) 01/24/25 14:30 Urine Bilirubin Negative (Negative) 01/24/25 14:30 Urine Urobilinogen 1.0 mg/dL (Negative) 01/24/25 14:30 Ur Leukocyte Esterase Trace (Negative) A 01/24/25 14:30 Urine RBC 0-2 /hpf (0-2) 01/24/25 14:30 Urine WBC 0-5 /hpf (0-5) 01/24/25 14:30 Ur Squamous Epith Cells 6-10 /hpf (0-5) 01/24/25 14:30 Amorphous Sediment Not Reportable 01/24/25 14:30 Urine Bacteria None seen /hpf (NONE) 01/24/25 14:30 Hyaline Casts 9.91 /lpf 01/24/25 14:30 All radiology interpretation(s) finalized by discharge Discharge Plan Discharge Patient Disposition: Home Clinical Impression: Back pain Qualifiers: Back pain location: low back pain Chronicity: chronic Back pain laterality: midline Sciatica presence: without sciatica Qualified Code(s): M54.50 - Low back pain, unspecified Condition: Stable Prescriptions: New cyclobenzaprine 10 mg tablet 10 mg PO TID Qty: 14 0RF methylprednisolone [Medrol (Maximino)] 4 mg tablets,dose pack See Rx Instructions .ROUTE .COMPLEX Qty: 21 0RF Rx Instructions: orally per package directions No Action fexofenadine [Nazanin Allergy] 180 mg tablet 180 mg PO DAILY Qty: 60 1RF amlodipine 5 mg tablet 5 mg PO BID oxybutynin chloride 5 mg tablet extended release 24hr 5 mg PO DAILY Azo Cranberry 250 mg tablet,chewable 250 mg PO DAILY PreserVision AREDS 2 Plus MV 200 mcg-15 mcg- 5 mg-1 mg capsule PO clopidogrel 75 mg tablet 75 mg PO DAILY pantoprazole [address] for susp in packet 40 mg PO DAILY fluticasone propionate 50 mcg/actuation spray,suspension See Rx Instructions .ROUTE .COMPLEX Qty: 16 2RF Dose Instruction: USE 1 SPRAY IN EACH NOSTRIL TWICE DAILY Rx Instructions: USE 1 SPRAY IN EACH NOSTRIL TWICE DAILY Eliquis 5 mg tablet 5 mg PO BID Qty: 180 3RF galantamine 4 mg tablet See Rx Instructions .ROUTE .COMPLEX Qty: 180 3RF Dose Instruction: TAKE 1 TABLET BY MOUTH TWICE DAILY WITH MORNING AND EVENING MEALS Rx Instructions: TAKE 1 TABLET BY MOUTH TWICE DAILY WITH MORNING AND EVENING MEALS acetaminophen 325 mg Tablet 650 mg PO Q6H PRN (Reason: Mild Pain) Qty: 0 0RF citalopram 20 mg tablet 20 mg PO DAILY famotidine 20 mg tablet 20 mg PO BID montelukast 10 mg tablet 10 mg PO DAILY pravastatin 80 mg Tablet 80 mg PO DAILY 30 Days Qty: 30 0RF Discharge Orders: Discharge ED (Routine); Ordered 01/24/25 Ordered By: Silke Borja Referrals: Van Rosas MD [Primary Care Provider, Family Practice] Activity Restrictions/Additional Instructions: As we discussed, continue plan to follow-up with Dr. Rosas for further evaluation of her back pain. You may return to the emergency department at anytime for any further concerns you may have or worsening/uncontrollable pain or discomfort. Print Language: Arabic Coding Level of Care Code ED [employer]her for Luis Motley
[2025-01-24 14:08] VITALS: BP 176/82; PULSE 85; RESP 18; TEMP 37; O2SAT 95; BMI 28.9
--- NOTE | 2025-01-24 14:23 | XR_ITS ---
WS: [id number] XR lumbar spine 2-3V* [id number] REASON FOR EXAM: low back pain FINDINGS: Relatively normal lumbar spine curvatures. No significant lumbar vertebral body compression deformity or focal lesion of the lumbar vertebrae. Mild vertebral body osteophytosis L1-L5. Mild narrowing of the L1-L2 disc space. No spondylolysis. 3. Millimeters of anterolisthesis of L5 on S1. Moderate degenerative arthropathy in the facet joints at L5-S1. XR/XR lumbar spine 2-3V* [id number] IMPRESSION: No acute abnormality. 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
[2025-01-24 14:39] VITALS: BP 169/84; PULSE 77; O2SAT 94
[2025-01-24 14:50] LABS: Bilirubin Urine Negative (Negative); Blood Urine Negative (Negative); Glucose Urine UA Negative (Normal); Ketones Urine Trace (Negative); Leukocyte Esterase Urine Trace (Negative); Nitrate Urine Negative (Negative); Protein Urine 1+ (Negative); Specific Gravity, Urine 1.017 (1.005-1.030); Urine Appearance Clear (CLEAR); Urine Color Yellow (Yellow)
[2025-01-24 14:54] LABS: Add Urine Microscopic? YES; Bacteria Urine None Seen /hpf; Hyaline Casts Urine 9.91 /lpf; RBC Urine 0-2 /hpf (0-2); WBC Urine 0-5 /hpf (0-5)
[2025-01-24] MEDS: orphenadrine 30 mg/mL Inj 2 mL 60 MG IM (15:24)
[2025-01-24] MEDS: dexamethasone 10 mg/mL INJ 8 MG IM (15:26)
[2025-01-24 15:30] VITALS: BP 164/77; PULSE 84; O2SAT 98
[2025-01-24 16:20] VITALS: BP 160/68; PULSE 76; O2SAT 99
== END 2025-01-24 16:21 | disposition home or self-care (01) ==
PROVIDERS: Emergency Provider Physician Assistant; PCP Family Medicine
DX: M54.50 Low back pain, unspecified (principal); Z79.02 Long term (current) use of antithrombotics/antiplatelets; Z79.01 Long term (current) use of anticoagulants; I25.10 Atherosclerotic heart disease of native coronary artery without angina pectoris; I11.0 Hypertensive heart disease with heart failure; I50.30 Unspecified diastolic (congestive) heart failure
CPT/HCPCS: 72100; 81001; 96372; 99284; J1100; J2360

== ENCOUNTER → 2025-05-09 15:21 | Outpatient (BNVA) | payer MEDICARE, OTHER, SELFPAY | PROVIDERS: PCP Family Medicine; Visit Provider Internal Medicine Cardiovascular Disease | DX: I25.118 Atherosclerotic heart disease of native coronary artery with other forms of angina pectoris (principal); I48.0 Paroxysmal atrial fibrillation; Z79.01 Long term (current) use of anticoagulants; I10 Essential (primary) hypertension; I65.23 Occlusion and stenosis of bilateral carotid arteries; E78.5 Hyperlipidemia, unspecified; Z98.890 Other specified postprocedural states; Z95.5 Presence of coronary angioplasty implant and graft; Z86.73 Personal history of transient ischemic attack (TIA), and cerebral infarction without residual deficits; I25.2 Old myocardial infarction | CPT/HCPCS: 99214 ==